=== PATIENT | male | born 1980 | race Caucasian/White ===

== ENCOUNTER → 2018-01-20 | Outpatient (CLI) | payer OTHER ==
--- NOTE | 2018-01-20 17:04 | DIAGNOSTIC IMAGING REPORT ---
RIGHT LOWER EXTREMITY VENOUS DOPPLER CLINICAL HISTORY: Right leg pain and swelling. COMPARISON STUDY: No previous studies for comparison. TECHNIQUE: Sonography of the deep venous system of the right lower extremity was performed. Compression and augmentation were evaluated. FINDINGS: The common femoral, superficial femoral and popliteal veins were compressible. Augmentation was normal. Flow was shown within the deep calf vessels. IMPRESSION: No evidence of deep venous thrombus within the right lower extremity. Electronically signed by: Michael Sharpe M.D. 01/20/2018 5:02 PM Dictated Date/Time: 01/20/2018 5:02 PM
== END | disposition home or self-care (01) ==
LOC: C.ULTR 16:34
DX: M79.604 Pain in right leg (principal); M79.89 Other specified soft tissue disorders

== ENCOUNTER → 2018-02-11 | Outpatient (CLI) | payer OTHER ==
[2018-02-11 09:36] LABS: BASO % 0.4 %; BASO ABS # 0.03 K/uL (0-0.2); EOS % 1.4 %; EOS ABS # 0.11 K/uL (0-0.5); HEMOGLOBIN 14.7 g/dL (14.0-18.0); IG# 0.02 K/uL (0.00-0.02); LYMPH % 23.5 %; LYMPH ABS # 1.87 K/uL (1.2-3.4); MEAN CELL VOLUME 86.4 fL (80-100); MEAN CORPUSCULAR HEMOGLOBIN 28.9 pg (25-34); MEAN CORPUSCULAR HGB CONC 33.4 g/dl (32-36); MEAN PLATELET VOLUME 9.6 fL (7.4-10.4); MONO ABS # 0.64 K/uL (0.11-0.59); NEUT % 66.4 %; PLATELET COUNT 205 K/uL (130-400); RED CELL DISTRIBUTION WIDTH CV 14.3 % (11.5-14.5); WHITE BLOOD COUNT 7.97 K/uL (4.8-10.8)
[2018-02-11 10:05] LABS: BLOOD UREA NITROGEN 15 mg/dl (7-18); CARBON DIOXIDE 26 mmol/L (21-32); CREATININE 1.13 mg/dl (0.60-1.40); GLUCOSE 104 mg/dl (70-99); SODIUM 141 mmol/L (136-145)
[2018-02-11 10:16] LABS: CHOLESTEROL 139 mg/dl (0-200); LDL CHOLESTEROL CALCULATED 85 mg/dl
[2018-02-11 10:58] LABS: HEMOGLOBIN A1C 5.6 % (4.5-5.6)
== END | disposition home or self-care (01) ==
LOC: C.LAB 08:05
DX: R73.9 Hyperglycemia, unspecified (principal); E78.5 Hyperlipidemia, unspecified; I10 Essential (primary) hypertension

== ENCOUNTER 2019-06-08 16:39 | Inpatient (IN) ==
--- OUTSIDE RECORDS SUMMARY | 2019-06-08 16:42 | External Medical Summary | Continuity of Care Document ---
:1980 Author Name Man Kearney, Provider Address Unavailable Unavailable , Care Team Providers Name Role Phone Nathanael Jama M.D., I. Unavailable [email or web address] Unavailable Unavailable Unavailable Unavailable Unavailable Assessments Assessment Narrative:35 yo male s/p vas, well healed.Assessed Problems:Vasectomy evaluation Problems Hypercholesterolemia (272.0) (E78.00) Anxiety (300.00) (F41.9) Vasectomy evaluation (V25.09) (Z30.09) Allergies and Adverse Reactions No Known Drug Allergies (Allergy) Medications Lexapro 20 MG Oral Tablet Refills: 0 Simvastatin 20 MG Oral Tablet Refills: 0 Procedures History of Tonsillectomy Status: Complet ed Immunizations Immunizations not documented Family History Grandparent Family history of diabetes mellitus (V18.0) (Z83.3) Status: Active Family history of cardiac disorder (V17.49) (Z82.49) Status: Active Social History - Smoking Status Never smoker Interventions Follow-ups/ReferralsFollow-up as needed; Done: 12 Sep 2015 Plan of Treatment Planned Observations Planned Goals not documented Results No Known Results Results not documented Encounters Appointment; Nathanael Jama M.D. 12-Sep-2015 9:00 Encounter Diagnosis: Problem not documented
[2019-06-08] MEDS ORDERED: CEFAZOLIN 3,000 MG in DEXTROSE 5% 50 ML IV ONE (17:14)
[2019-06-08] MEDS ORDERED: SODIUM CHLORIDE 0.9% 1000ML 2,000 ML IV SCH (17:15)
[2019-06-08] MEDS ORDERED: ONDANSETRON INJ 2 MG/ML 2 ML VIAL IV STA ×2 (17:16→20:42)
--- NOTE | 2019-06-08 17:17 | Emergency Department Note ---
Entered by Brandon Pennington acting as a scribe for Nasim Solis DO History of Present Illness General Chief complaint: Fever Stated complaint: FEVER, CHILLS, NAUSEA Time Seen by Provider: 06/08/19 16:53 Source: patient History of Present Illness Provider complaint: flu symptoms Onset (ago): day(s) 1 Location: abdomen Pain Consistency: + intermittent Maximum Pain Intensity: 5 Quality: + other (weakness) Relieved By: + rest Exacerbated By: + none Associated symptoms: + denies other symptoms, + cough, + fever/chills, + headaches, + nausea/vomiting and + other (sore throat, weakness) The patient is a 39 y/o male who presents to the emergency department for evaluation of intermittent fever/chills that began yesterday. That patient states he had chills yesterday and sleep a lot, felt a little better so he went to work but began having chills, nausea, sore throat, cough, headache, and all over weakness this afternoon. The patient states he took Tylenol prior to arrival. He reports he has leg cellulitis with edema that has been going down since starting a diet a few weeks ago, though he notes he recently got sunburn and is a little tender on his legs. The patient denies being in the srinivasan recently, neck stiffness or any other symptoms. The patient reports a history of hypertension, depression, high cholesterol, and cellulitis. Home Medications Home Medications Medication Instructions Recorded Confirmed Type atorvastatin 20 mg PO QAM 06/08/19 06/08/19 History escitalopram oxalate 20 mg PO QAM 06/08/19 06/08/19 History lisinopril 10 mg PO QAM 06/08/19 06/08/19 History Allergies Allergy/AdvReac Type Severity Reaction Status Date / Time No Known Allergies Allergy Unverified 06/08/19 17:13 Past Med/Surg History Medical History Cellulitis Depression High cholesterol Hypertension Social History Preferred Language: Hebrew Feels Safe at Home: Yes Smoking Status: Never smoker Review of Systems See HPI for pertinent positives & negatives. and A total of 10 systems reviewed and were otherwise negative Physical Exam Vital Signs Vital Signs - 24 hr 06/08/19 16:40 06/08/19 18:19 06/08/19 18:30 Temperature 37.8 C H Temperature Source Oral Sepsis Recent Fever Within 48 Hours Yes Sepsis New/Unexplained Change in Mental Status No Sepsis Action Taken by Nursing No Action Required Pulse Rate 137 H 109 H Pulse Rate [Apical] 113 H Pulse Rate from SpO2 Sensor 113 H Pulse Rhythm Regular Pulse Strength Normal Respiratory Rate 20 22 31 H Respiratory Effort / Characteristics Non-Labored Spontaneous Non-Labored Spontaneous Respiratory Depth Normal Normal Respiratory Pattern Regular Regular Blood Pressure 126/58 L 92/59 L Blood Pressure [Left Arm] 123/56 L Blood Pressure Mean 80 70 Blood Pressure Mean [Left Arm] 78 Blood Pressure Position Sitting Pulse Oximetry 96 93 95 Oxygen Delivery Method Room Air Room Air Room Air 06/08/19 19:01 Temperature Temperature Source Sepsis Recent Fever Within 48 Hours Sepsis New/Unexplained Change in Mental Status Sepsis Action Taken by Nursing Pulse Rate 115 H Pulse Rate [Apical] Pulse Rate from SpO2 Sensor 126 H Pulse Rhythm Pulse Strength Respiratory Rate 40 H Respiratory Effort / Characteristics Respiratory Depth Respiratory Pattern Blood Pressure 147/82 H Blood Pressure [Left Arm] Blood Pressure Mean 103 Blood Pressure Mean [Left Arm] Blood Pressure Position Pulse Oximetry 97 Oxygen Delivery Method Room Air CONSTITUTIONAL/VITAL SIGNS: Reviewed / noted above. GENERAL: Non-toxic in appearance. INTEGUMENTARY: Warm, dry, and [place]. HEAD: Normocephalic. EYES: without scleral icterus or trauma. ENT/OROPHARYNX: clear and moist. LYMPHADENOPATHY/NECK: Is supple without lymphadenopathy or meningismus. RESPIRATORY: Lungs clear and equal. CARDIOVASCULAR: Regular rate and rhythm. GI/ABDOMEN: Soft and nontender. No organomegaly or pulsatile mass. No rebound or guarding. Normal bowel sounds. EXTREMITIES: Warm and well perfused. Anterior lower extremities are erythematous and warm. Posterior and right leg is erythematous and warm. BACK: No CVA tenderness. NEUROLOGICAL: Intact without focal deficits. PSYCHIATRIC: normal affect. MUSCULOSKELETAL: Normally developed with good muscle tone. Course 1655: Past medical records reviewed. The patient was evaluated in room B07. A complete history and physical exam was performed. 1854: I checked on the patient and updated him on his results. 1899: I spoke with Dr. Keene Hospitalist. She will evaluate for further management. Administered Medications Sodium Chloride (Nss 1000ml) 2,000 mls @ 999 mls/hr IV .Q2H1M SUSANNAH Stop: 06/08/19 19:15 Last Admin: 06/08/19 18:11 Dose: 999 mls/hr Documented by: [id number] Discontinued Medications Cefazolin Sodium 3,000 mg/ (Dextrose) 72.5 mls @ 130 mls/hr IV ONE ONE Stop: 06/08/19 17:47 Last Infusion: 06/08/19 18:50 Dose: 0 mls/hr Documented by: [id number] Admin: 06/08/19 18:16 Dose: 130 mls/hr Documented by: [id number] Ondansetron HCl (Zofran) 4 mg IV NOW STA Stop: 06/08/19 17:17 Last Admin: 06/08/19 18:13 Dose: 4 mg Documented by: [id number] Medical Decision Making Differential Diagnosis Differential includes viral illness, influenza, streptococcal pharyngitis, men ingitis, pneumonia, sinusitis, UTI, pyelonephritis, otitis media. Medical Records Attestation: I reviewed the patient's medical records. Home Medications Current Medication List: was personally reviewed by me Laboratory Data Attestation: I reviewed the patient's lab results. Result diagrams: 06/08/19 17:40 06/08/19 17:40 Lab Results 06/08/19 06/08/19 Range/Units 17:40 17:40 WBC 18.33 H (4.8-10.8) K/uL RBC 4.94 (4.7-6.1) M/uL Hgb 14.3 (14.0-18.0) g/dL Hct 41.8 L (42-52) % MCV 84.6 (80-100) fL MCH 28.9 (25-34) pg MCHC 34.2 (32-36) g/dL RDW Std Deviation 41.8 (36.4-46.3) fL RDW Coeff of Ivy 13.7 (11.5-14.5) % Plt Count 193 (130-400) K/uL MPV 9.8 (7.4-10.4) fL Immature Gran % (Auto) 0.2 % Neut % (Auto) 93.2 % Lymph % (Auto) 3.3 % Barbour % (Auto) 3.2 % Eos % (Auto) 0.0 % Baso % (Auto) 0.1 % Immature Gran # (Auto) 0.04 H (0.00-0.02) K/uL Neut # (Auto) 17.08 H (1.4-6.5) K/uL Lymph # (Auto) 0.60 L (1.2-3.4) K/uL Barbour # (Auto) 0.59 (0.11-0.59) K/uL Eos # (Auto) 0.00 (0-0.5) K/uL Baso # (Auto) 0.02 (0-0.2) K/uL Sodium 136 (136-145) mmol/L Potassium 3.7 (3.5-5.1) mmol/L Chloride 106 (98-107) mmol/L Carbon Dioxide 24 (21-32) mmol/L Anion Gap 6.0 (3-11) BUN 16 (7-18) mg/dl Creatinine 1.17 (0.6-1.4) mg/dl Est Cr Clr Drug Dosing 137.9 ml/min Est GFR ( Amer) 90.5 Est GFR (Non-Af Amer) 78.1 BUN/Creatinine Ratio 13.5 (10-20) Glucose 106 H (70-99) mg/dl Calcium 8.9 (8.5-10.1) mg/dl Total Bilirubin 0.5 (0.2-1) mg/dl AST 12 L (15-37) U/L ALT 41 (12-78) U/L Alkaline Phosphatase 91 (45-117) U/L Total Protein 7.8 (6.4-8.2) gm/dl Albumin 4.0 (3.4-5.0) gm/dl Globulin 3.8 (2.5-4.0) gm/dl Albumin/Globulin Ratio 1.1 (0.9-2) Imaging Data Radiologist's Impression: Radiology results as stated below per my review and the radiologist's interpretation: XR chest 1V portable CLINICAL HISTORY: 39 years-old Male presenting with fever, mild cough. TECHNIQUE: Portable upright AP view of the chest was obtained. COMPARISON: None. FINDINGS: Evaluation degraded by portable technique and body habitus. Cardiac silhouette top normal in size. Mild pulmonary vascular prominence. Mildly low lung volumes. No focal opacity. No large effusion or pneumothorax. Osseous structures normal. Upper abdomen normal. IMPRESSION: Evaluation degraded by portable technique and body habitus. 1. Mild volume overload suggested. No other convincing evidence of acute cardiopulmonary disease. Electronically signed by: Anthony Dove M.D. 06/08/2019 5:45 PM Blood Pressure Blood Pressure Findings: Elevated blood pressure Blood Pressure Disposition: further management by hospitalist KIAH Narrative This is a 39-year-old male who presents to the ED with a chief complaint of fever and chills that started last night and today. He states that he took some Tylenol at 4 PM today. He has some associated nausea and dizziness and feels like he might be dehydrated. The patient feels weak and drained. He states that he has a slight sore throat and a slight cough. He also has some redness in his legs. He states that it could be a sunburn or cellulitis. He reports that history of cellulitis in his legs. He states that he may have gotten a sunburn on Thursday. The patient also states he may have a slight cough this afternoon. He has a slight headache. Denies any light sensitivity or neck stiffness or pain. He has no known tick exposures. He does not go into the srinivasan. His vital signs here reveal a tachycardia with a heart rate of 137 on triage. When I saw the patient it was 128. His temperature is 37.8. Vital signs are otherwise stable. The patient's white blood cell count was 18.3. Complete metabolic panel was unremarkable. Chest x-ray did not show acute infection. They did report mild volume overload. This could be related to body habitus. Clinically the patient does not have any pulmonary findings to suggest heart failure. He does report a history of hypertension and high cholesterol. The patient was given IV Ancef as well as IV Zofran and 2 L of normal saline. The patient's tachycardia improved to the 1 teens. His blood pressure transiently dropped to 92 systolic. Because of the patient's fever, cellulitis, tachycardia and leukocytosis, the patient will be seen by the hospitalist for sepsis related to cellulitis. Impression & Plan Cellulitis, Sepsis : Cellulitis Qualifiers: Site of cellulitis: extremity Site of cellulitis of extremity: lower extremity Laterality: right Qualified Code(s): L03.115 - Cellulitis of right lower limb Sepsis Qualifiers: Sepsis type: sepsis due to unspecified organism Qualified Code(s): A41.9 - Sepsis, unspecified organism The scribe's documentation has been prepared under my direction and personally reviewed by me in its entirety. I confirm that the note above accurately reflects all work, treatment, procedures, and medical decision making performed by me.
--- NOTE | 2019-06-08 17:47 | XRay Report ---
XR chest 1V portable CLINICAL HISTORY: 39 years-old Male presenting with fever, mild cough. TECHNIQUE: Portable upright AP view of the chest was obtained. COMPARISON: None. FINDINGS: Evaluation degraded by portable technique and body habitus. Cardiac silhouette top normal in size. Mild pulmonary vascular prominence. Mildly low lung volumes. N o focal opacity. No large effusion or pneumothorax. Osseous structures normal. Upper abdomen normal. IMPRESSION: Evaluation degraded by portable technique and body habitus. 1. Mild volume overload suggested. No other convincing evidence of acute cardiopulmonary disease. Electronically signed by: Anthony Dove M.D. 06/08/2019 5:45 PM
[2019-06-08 18:01] LABS: Basophils # (auto) 0.02 K/uL (0-0.2); Basophils % (auto) 0.1 %; Hematocrit (blood only) 41.8 % (42-52); Hemoglobin 14.3 g/dL (14.0-18.0); Immature Granulocytes # (auto) 0.04 K/uL (0.00-0.02); Immature Granulocytes % (auto) 0.2 %; Lymphocytes % (auto) 3.3 %; Mean Corpuscular Hgb Conc 34.2 g/dL (32-36); Mean Corpuscular Volume 84.6 fL (80-100); Mean Platelet Volume 9.8 fL (7.4-10.4); Monocytes # (auto) 0.59 K/uL (0.11-0.59); Monocytes % (auto) 3.2 %; Neutrophils # (auto) 17.08 K/uL (1.4-6.5); Neutrophils % (auto) 93.2 %; Platelet Count 193 K/uL (130-400); RDW Coefficient of Variation 13.7 % (11.5-14.5); RDW Standard Deviation 41.8 fL (36.4-46.3); Red Blood Count 4.94 M/uL (4.7-6.1); White Blood Count 18.33 K/uL (4.8-10.8)
[2019-06-08 18:19] LABS: BUN Creatinine Ratio 13.5 (10-20); Calcium 8.9 mg/dl (8.5-10.1); Creatinine Clr Calc Pharmacy 137.9 ml/min; Est GFR (African American) 90.5; Est GFR (Non-African American) 78.1; Potassium 3.7 mmol/L (3.5-5.1)
[2019-06-08 18:21] LABS: Albumin Globulin Ratio 1.1 (0.9-2); Bilirubin,Total 0.5 mg/dl (0.2-1); Globulin 3.8 gm/dl (2.5-4.0); Total Protein 7.8 gm/dl (6.4-8.2)
--- NOTE | 2019-06-08 20:03 | History & Physical Report ---
Date of Service June 08, 2019 Assessment & Plan (1) Cellulitis: Chief Complaint: 39 y/o M Hx HTN, HLD, depression, morbid obesity. Presents with a fever and RLE pain and erythema. 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 The pt was febrile and borderline hypotensive on arri pb to the ER. He responded well to IVF and acetaminophen and was actually hypertensive on admission. Labs are notable for leukocytosis. 1) Cellulitis with sepsis - placed on Ceftriaxone and Vanc pending culture results. Affected area delineated. 2) HTN - cont Lisinopril 3) Depression - cont Lexapro Full code - heparin prophylaxis - total time for this admit including review of labs, meds, imaging, records - discussion with pt and ER attending - 35 min Present on Admission?: Yes (2) Sepsis: Present on Admission?: Yes History of Present Illness Chief Complaint: Fever - RLE pain/erythema Primary Care Provider: Etienne Turk Jr, DO 39 y/o M Hx HTN, HLD, depression, morbid obesity. Presents with a fever and RLE pain and erythema. 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 The pt was febrile and borderline hypotensive on arrival to the ER. He responded well to IVF and acetaminophen and was actually hypertensive on admission. Labs are notable for leukocytosis. PMH: 1) Morbid obesity BMI 56 2) HTN 3) HLD 4) Depression Denies a surgical history Social: Does not smoke. Occasional beer. 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 Family: Denies a significant family history. Allergies Allergy/AdvReac Type Severity Reaction Status Date / Time No Known Allergies Allergy Unverified 06/08/19 17:13 Home Medications Home Medications Medication Instructions Recorded Confirmed Type atorvastatin 20 mg PO QAM 06/08/19 06/08/19 History escitalopram oxalate 20 mg PO QAM 06/08/19 06/08/19 History lisinopril 10 mg PO QAM 06/08/19 06/08/19 History Past Med/Surg History Medical History Cellulitis Depression High cholesterol Hypertension Social History Preferred Language: Com[place]an Feels Safe at Home: Yes Smoking Status: Never smoker Review of Systems Review of Systems: Gen: +Fevers, night sweats, rigors, fatigue, malaise, weight loss/gain ENT: Denies congestion, throat pain, hearing loss Eyes: Denies acute visual changes CV: Denies CP, palpitations Pulmonary: Denies SOB, cough, wheezing GI: Denies N/V, diarrhea, constipation Neuro: Denies acute or unilateral weakness, acute gait impairment, headache or acute visual changes Musculoskeletal: Denies joint pain, inflammation Endocrine: Denies polydipsia, polyuria Skin: Erythema over LEs - pain of RLE Physical Exam Physical Exam: General: AAO x 3, no distress ENT: No erythema or exudates, no thrush Eyes: ANGELINE, EOMI Head and neck: Normocephalic, atraumatic, No JVD, neck is supple. Chest/heart: Nontender, S1,2, RRR, no murmurs, no gallops Lungs: CTAB, no wheezing or crackles Abdomen: Nontender, nondistended, BS+ Neuro: AAO x 3, speech is clear, no unilateral weakness or loss of sensation, coordination intact Musculoskeletal: No joint inflammation, muscle tenderness, FROM Skin: There is a very warm and tender patch of skin on the RLE - extends from above the ankle to below the knee. There is a smaller affected area on the L side. There may be an element of sunburn imposed on the cellulitis. Extremities: No clubbing, cyanosis, edema - cellulitis as above Results & Data Vital Signs (Past 12 Hours) Vital Signs Temp Pulse Pulse Resp BP BP Pulse Ox 06/08/19 19:30 115 H 25 H 158/82 H 96 06/08/19 19:01 115 H 40 H 147/82 H 97 06/08/19 18:30 109 H 31 H 92/59 L 95 06/08/19 18:19 113 H 22 123/56 L 93 06/08/19 16:40 100.0 F H 137 H 20 126/58 L 96 PG Care Time/CCT Total # of Minutes Spent Total Time Spent with Patient: Total time spent is greater than 50% in coordination of care (as documented) at patient's floor/unit and/or counseling patient: (1) Cellulitis Laterality: right Site of cellulitis: extremity Site of cellulitis of extremity: lower extremity Qualified Code(s): L03.115 - Cellulitis of right lower limb (2) Sepsis Sepsis type: sepsis due to unspecified organism Qualified Code(s): A41.9 - Sepsis, unspecified organism
[2019-06-08] MEDS ORDERED: ACETAMINOPHEN 500 MG TAB PO STA (20:42)
[2019-06-08] MEDS ORDERED: POLYETHYLENE (MIRALAX) 17 GM PACK PO PRN (21:10)
[2019-06-08] MEDS ORDERED: ZOLPIDEM TARTRATE 5 MG TAB PO PRN (21:10)
[2019-06-08] MEDS ORDERED: ALUMINUM/MAGNESIUM SUSP 30 ML UDC PO PRN (21:10)
[2019-06-08] MEDS ORDERED: VANCOMYCIN CONSULT ACTIVE PRN (21:10)
[2019-06-08] MEDS ORDERED: MAGNESIUM HYDROXIDE SUSP 30 ML UDC PO PRN (21:10)
[2019-06-08] MEDS ORDERED: VANCOMYCIN HCL 2,750 MG in SODIUM CHLORIDE 0.9% 500 ML IV STA (21:17)
[2019-06-08 21:41] LABS: Appearance Urine Clear (Clear); Bilirubin Urine Negative (Negative); Blood Urine Negative (Negative); Color Urine Yellow; Glucose Urine UA Negative (Negative); Ketones Urine Trace (Negative); Leukocyte Esterase Urine Negative (Negative); Nitrite Urine Negative (Negative); Protein Urine Negative (Negative); Specific Gravity Urine 1.031 (1.000-1.030); Urobilinogen Urine Negative (Negative)
[2019-06-08] MEDS: LACTATED RINGER'S 1,000 ML IV SCH (21:44)
--- NOTE | 2019-06-08 22:08 | Pharmacy Report ---
Pharmacy Abx Dose Short Note - Date of Service June 08, 2019 - Assessment & Plan Assessment * Mr Walsh is a 39 year old M receiving Vancomycin/Ceftriaxone for treatment of RLE cellulitis/sepsis. * Patient reports fever/chills/cough. CXR does not indicate infectious process. * Blood cultures pending. Plan Vancomycin * Vanc 2750mg (~15mg/kg) IV x1 dose, then 2000mg (~11mg/kg) IV q10h * non-standard loading dose d/t pt's weight * Estimated p'kinetic parameters (based on CrCl >120mL/min): * Vd ~ 0.5L/kg, Cristino ~ 0.104/hr, t1/2 6.7hr * Patient dosed very conservatively in anticipation of vanc accumulation in morbidly obese patient (BMI >55kg/m2). * Goal trough level for SSTI: 15 to 20 mcg/mL * Trough level ordered for: 06/10 prior to the 5th overall dose. This may not yet represent steady-state, but will need to monitor for signs of vancomycin accumulation and reduce dosing if necessary. Pharmacy will continue to follow and will adjust dose/frequency as necessary. Thank you.
[2019-06-08] MEDS ORDERED: ACETAMINOPHEN 325 MG TAB PO STA (22:47)
[2019-06-09] MEDS ORDERED: KETOROLAC TROMETHAMINE 15 MG/ML VIAL IV ONE ×2 (00:01→05:38)
[2019-06-09] MEDS ORDERED: cefTRIAXone SODIUM 2,000 MG in DEXTROSE 5% 50 ML IV SCH (04:00)
[2019-06-09] MEDS: LACTATED RINGER'S 1,000 ML IV SCH (04:34)
[2019-06-09] MEDS: VANCOMYCIN HCL 2,000 MG in SODIUM CHLORIDE 0.9% 500 ML IV SCH ×2 (05:55→16:16)
[2019-06-09] MEDS: ACETAMINOPHEN 325 MG TAB PO PRN ×2 (06:19→13:01)
[2019-06-09 07:52] LABS: Hematocrit (blood only) 37.2 % (42-52); Hemoglobin 12.2 g/dL (14.0-18.0); Mean Corpuscular Hgb Conc 32.8 g/dL (32-36); Mean Corpuscular Volume 86.5 fL (80-100); Mean Platelet Volume 10.2 fL (7.4-10.4); Platelet Count 174 K/uL (130-400); RDW Coefficient of Variation 14.2 % (11.5-14.5); RDW Standard Deviation 44.5 fL (36.4-46.3); White Blood Count 15.31 K/uL (4.8-10.8)
[2019-06-09] MEDS: ATORVASTATIN 20 MG TAB PO SCH (07:59)
[2019-06-09 08:02] LABS: INR 1.2 (0.9-1.1); Prothrombin Time 12.4 Seconds (9.0-12.0)
[2019-06-09 08:18] LABS: Basophils # (auto) 0.02 K/uL (0-0.2); Basophils % (auto) 0.1 %; Immature Granulocytes # (auto) 0.04 K/uL (0.00-0.02); Immature Granulocytes % (auto) 0.3 %; Lymphocytes # (auto) 1.19 K/uL (1.2-3.4); Lymphocytes % (auto) 7.8 %; Monocytes # (auto) 0.62 K/uL (0.11-0.59); Neutrophils # (auto) 13.44 K/uL (1.4-6.5); Neutrophils % (auto) 87.8 %
[2019-06-09 08:57] LABS: BUN Creatinine Ratio 11.6 (10-20); Calcium 7.7 mg/dl (8.5-10.1); Creatinine Clr Calc Pharmacy 124.1 ml/min; Est GFR (African American) 80.4; Est GFR (Non-African American) 69.4; Magnesium 1.9 mg/dl (1.8-2.4); Potassium 3.4 mmol/L (3.5-5.1)
[2019-06-09] MEDS ORDERED: LISINOPRIL 10 MG TAB PO SCH (09:00)
[2019-06-09] MEDS: HEPARIN SOD 5,000 UNIT/0.5 ML VIAL SQ SCH ×2 (13:00→21:54)
[2019-06-09] MEDS ORDERED: POTASSIUM CHLORIDE 20 MEQ TABCR PO STA (15:30)
[2019-06-09] MEDS ORDERED: PIPERACILL/TAZOBAC CONSULT ACTIVE PRN (19:36)
--- NOTE | 2019-06-09 19:38 | Hospitalist Progress Note ---
Date of Service June 09, 2019 Assessment & Plan (1) Cellulitis: Pt is a 39 y/o M Hx HTN, HLD, depression, morbid obesity. Presents with a fever and RLE >LLE pain and erythema. 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 The pt was febrile and borderline hypotensive on arrival to the ER, with tachycardia. He responded well to IVF and acetaminophen and was actually hypertensive on admission. Labs are notable for leukocytosis. Cellulitis with sepsis - initially placed on Ceftriaxone and Vanc pending culture results. Affected area delineated. 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 Is not a diabetic -will broaden coverage to Zosyn and dc Rocephin -continue Vancomycin -continue tylenol as needed for fevers -can dc IVFs -follow BCs-NGTD (2) Sepsis: as above with leukocytosis, tachycardia, fever, cellulitis -treating with abx (3) HTN (hypertension), benign: stable -continue lisinopril (4) Hyperlipidemia: -continue statin (5) Obesity: BMI 55. Pt is actively working on losing weight and has lost 10 lbs in the last few weeks (6) Depression: stable -continue Lexapro (7) DVT prophylaxis: SQ Heparin Dispo-continued stay for cellulitis Subjective Feeling much better today. No fevers today, no more chills. Feels his leg is less painful, a little less red, however he now has red streaking up his right thigh that he did not notice yesterday Had some mild nausea earlier that resolved on its own. Denies CP or SOB, no HINDS, no diarrhea, no abd pain, is making urine, danielle po Review of Systems Review of Systems: All systems reviewed & are unremarkable except as noted in HPI & below Physical Exam Constitutional: WD/WN, vitals as above + morbidly obese Eyes: PERRL, conjunctivae normal, anicteric sclerae ENMT: external ear and nose normal, oropharynx normal Neck: trachea midline, no thyromegaly Respiratory: normal respiratory effort, lungs clear to auscultation Cardiovascular: Rate/Rhythm: regular rhythm and + tachycardic Heart Sounds: no murmur Extremities: + edema (1+ pitting edema of bilat LEs to the mid tibia) Gastrointestinal (Abdomen): normal bowel sounds, soft, nontender, no hepatosplenomegaly Musculoskeletal: Extremities: no cyanosis and no clubbing Skin: + rash (right anterior and posterior leg with erythema from ankle to knee) and + erythema (with streaking of erythema on right anteromedial thigh) left anterior leg very mild erythema Right leg erythema now spread above marker line Neurologic: moves all extremities and awake; no focal motor deficits Psychiatric: A+Ox3, euthymic affect Results & Data Vital Signs (Past 12 Hours) Vital Signs Temp Pulse Resp BP Pulse Ox 06/09/19 15:21 37.2 C 102 H 21 120/65 94 06/09/19 13:00 37.2 C Laboratory Results 06/09/19 06/09/19 06/09/19 Range/Units 07:32 07:31 07:31 WBC (4.8-10.8) K/uL RBC (4.7-6.1) M/uL Hgb (14.0-18.0) g/dL Hct (42-52) % MCV (80-100) fL MCH (25-34) pg MCHC (32-36) g/dL RDW Std Deviation (36.4-46.3) fL RDW Coeff of Ivy (11.5-14.5) % Plt Count (130-400) K/uL MPV (7.4-10.4) fL Immature Gran % (Auto) % Neut % (Auto) % Lymph % (Auto) % Gilliam % (Auto) % Eos % (Auto) % Baso % (Auto) % Immature Gran # (Auto) (0.00-0.02) K/uL Neut # (Auto) (1.4-6.5) K/uL Lymph # (Auto) (1.2-3.4) K/uL Gilliam # (Auto) (0.11-0.59) K/uL Eos # (Auto) (0-0.5) K/uL Baso # (Auto) (0-0.2) K/uL PT 12.4 H (9.0-12.0) Seconds INR 1.2 H (0.9-1.1) Sodium 137 (136-145) mmol/L Potassium 3.4 L (3.5-5.1) mmol/L Chloride 108 H (98-107) mmol/L Carbon Dioxide 23 (21-32) mmol/L Anion Gap 6.0 (3-11) BUN 15 (7-18) mg/dl Creatinine 1.29 (0.6-1.4) mg/dl Est Cr Clr Drug Dosing 124.1 ml/min Est GFR ( Amer) 80.4 Est GFR (Non-Af Amer) 69.4 BUN/Creatinine Ratio 11.6 (10-20) Glucose 111 H (70-99) mg/dl POC Glucose 108 H (70-99) Calcium 7.7 L (8.5-10.1) mg/dl Magnesium 1.9 (1.8-2.4) mg/dl 06/09/19 Range/Units 07:31 WBC 15.31 H (4.8-10.8) K/uL RBC 4.30 L (4.7-6.1) M/uL Hgb 12.2 L (14.0-18.0) g/dL Hct 37.2 L (42-52) % MCV 86.5 (80-100) fL MCH 28.4 (25-34) pg MCHC 32.8 (32-36) g/dL RDW Std Deviation 44.5 (36.4-46.3) fL RDW Coeff of Ivy 14.2 (11.5-14.5) % Plt Count 174 (130-400) K/uL MPV 10.2 (7.4-10.4) fL Immature Gran % (Auto) 0.3 % Neut % (Auto) 87.8 % Lymph % (Auto) 7.8 % Gilliam % (Auto) 4.0 % Eos % (Auto) 0.0 % Baso % (Auto) 0.1 % Immature Gran # (Auto) 0.04 H (0.00-0.02) K/uL Neut # (Auto) 13.44 H (1.4-6.5) K/uL Lymph # (Auto) 1.19 L (1.2-3.4) K/uL Gilliam # (Auto) 0.62 H (0.11-0.59) K/uL Eos # (Auto) 0.00 (0-0.5) K/uL Baso # (Auto) 0.02 (0-0.2) K/uL PT (9.0-12.0) Seconds INR (0.9-1.1) Sodium (136-145) mmol/L Potassium (3.5-5.1) mmol/L Chloride (98-107) mmol/L Carbon Dioxide (21-32) mmol/L Anion Gap (3-11) BUN (7-18) mg/dl Creatinine (0.6-1.4) mg/dl Est Cr Clr Drug Dosing ml/min Est GFR ( Amer) Est GFR (Non-Af Amer) BUN/Creatinine Ratio (10-20) Glucose (70-99) mg/dl POC Glucose (70-99) Calcium (8.5-10.1) mg/dl Magnesium (1.8-2.4) mg/dl PG Care Time/CCT Total # of Minutes Spent Total Time Spent with Patient: Total time spent is greater than 50% in coordination of care (as documented) at patient's floor/unit and/or counseling patient: (1) Cellulitis Laterality: right Site of cellulitis: extremity Site of cellulitis of e xtremity: lower extremity Qualified Code(s): L03.115 - Cellulitis of right lower limb (2) Sepsis Sepsis type: sepsis due to unspecified organism Qualified Code(s): A41.9 - Sepsis, unspecified organism
[2019-06-09] MEDS ORDERED: PIPERACILLIN/TAZOBACTAM 3.375 GM in DEXTROSE 5% 100 ML IV SCH (19:45)
[2019-06-09] MEDS ORDERED: PIPERACILLIN/TAZOBACTAM 4.5 GM in DEXTROSE 5% 100 ML IV ONE (20:15)
[2019-06-09] MEDS ORDERED: ONDANSETRON INJ 2 MG/ML 2 ML VIAL IV PRN (21:54)
[2019-06-10] MEDS ORDERED: ONDANSETRON INJ 2 MG/ML 2 ML VIAL IV PRN (00:57)
[2019-06-10] MEDS: VANCOMYCIN HCL 2,000 MG in SODIUM CHLORIDE 0.9% 500 ML IV SCH ×3 (02:47→21:31)
[2019-06-10] MEDS: PIPERACILLIN/TAZOBACTAM 4.5 GM in DEXTROSE 5% 100 ML IV SCH ×3 (02:47→17:55)
[2019-06-10] MEDS: HEPARIN SOD 5,000 UNIT/0.5 ML VIAL SQ SCH ×3 (05:56→21:31)
[2019-06-10 06:11] LABS: Basophils # (auto) 0.01 K/uL (0-0.2); Basophils % (auto) 0.1 %; Eosinophils # (auto) 0.01 K/uL (0-0.5); Eosinophils % (auto) 0.1 %; Hematocrit (blood only) 37.3 % (42-52); Hemoglobin 12.1 g/dL (14.0-18.0); Immature Granulocytes # (auto) 0.05 K/uL (0.00-0.02); Immature Granulocytes % (auto) 0.4 %; Lymphocytes # (auto) 1.59 K/uL (1.2-3.4); Lymphocytes % (auto) 12.2 %; Mean Corpuscular Hgb Conc 32.4 g/dL (32-36); Mean Corpuscular Volume 88.6 fL (80-100); Mean Platelet Volume 9.9 fL (7.4-10.4); Monocytes # (auto) 0.74 K/uL (0.11-0.59); Monocytes % (auto) 5.7 %; Neutrophils # (auto) 10.63 K/uL (1.4-6.5); Neutrophils % (auto) 81.5 %; Platelet Count 176 K/uL (130-400); RDW Coefficient of Variation 14.2 % (11.5-14.5); RDW Standard Deviation 45.9 fL (36.4-46.3); Red Blood Count 4.21 M/uL (4.7-6.1); White Blood Count 13.03 K/uL (4.8-10.8)
[2019-06-10 06:47] LABS: Creatinine Clr Calc Pharmacy 132.3 ml/min; Est GFR (African American) 86.9; Potassium 3.8 mmol/L (3.5-5.1)
[2019-06-10] MEDS: ESCITALOPRAM OXALATE 20 MG TAB PO SCH (08:14)
[2019-06-10] MEDS: ATORVASTATIN 20 MG TAB PO SCH (08:49)
[2019-06-10] MEDS ORDERED: VANCOMYCIN TROUGH ONE (11:30)
--- NOTE | 2019-06-10 13:26 | Pharmacy Report ---
Pharmacy Abx Dose Progress Nt - Date of Service June 10, 2019 - Pharmacy Dosing Scope The patient is currently receiving the following antimicrobial agents per Pharmacy consult: Vancomycin 2,000 mg IV every 10 hours + Zosyn 4.5g IV Q8hrs - Objective Vital Signs (Past 12hrs): Vital Signs Temp Pulse Resp BP Pulse Ox 06/10/19 07:34 36.9 C 93 H 20 126/76 97 Lab Results (24hrs): Laboratory Tests (24 Hours) 06/10/19 06/10/19 06/10/19 11:38 05:35 05:35 WBC 13.03 H Neut # (Auto) 10.63 H Creatinine 1.21 Est Cr Clr Drug Dosing 132.3 Vancomycin Trough 12.0 Micro Results: Microbiology 06/08/19 17:51 Blood Aerobic Blood Culture - Preliminary 06/08/19 17:51 Blood Anaerobic Blood Culture - Preliminary No growth in Aerobic bottle after 24 hours. No growth in Anaerobic bottle after 24 hours. 06/08/19 17:40 Blood Aerobic Blood Culture - Preliminary 06/08/19 17:40 Blood Anaerobic Blood Culture - Preliminary No growth in Aerobic bottle after 24 hours. No growth in Anaerobic bottle after 24 hours. 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 Additionally, will need to dose somewhat conservatively since pt is receiving combination of vanco + zosyn which has an increased risk of nephrotoxicity than either agent when used in monotherapy * Continue dose of 2,000 mg IV every 10 hours * Goal trough level for cellulitis : 10 to 20 mcg/mL depending on c/s &/or severity * Repeat trough level ordered for: 06/12/19 @ 0400 * Less than traditional dose and/or extended dosing interval selected due to likelihood of drug accumulation in obese patient Piperacillin/tazobactam * Continue 4.5 g IV extended infusion every 8 hours for CrCl greater than 20 mL/min * Increased dose used for obesity (BMI >35) Pharmacy will continue to follow and will adjust dose/frequency as necessary. Thank you.
[2019-06-10] MEDS: ACETAMINOPHEN 325 MG TAB PO PRN (16:00)
[2019-06-10] MEDS: CLINDAMYCIN 600 MG in DEXTROSE 5% 50 ML IV SCH (16:00)
--- NOTE | 2019-06-10 16:18 | Hospitalist Progress Note ---
Date of Service June 10, 2019 Assessment & Plan (1) Cellulitis: Pt is a 39 y/o M Hx HTN, HLD, depression, morbid obesity. Presents with a fever and RLE >LLE pain and erythema. 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 The pt was febrile and borderline hypotensive on arrival to the ER, with tachycardia. He responded well to IVF and acetaminophen and was actually hypertensive on admission. Labs are notable for leukocytosis. Cellulitis with sepsis - initially placed on Ceftriaxone and Vanc pending culture results. Affected area delineated. 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 Is not a diabetic -have since broadened coverage to Zosyn on 06/09 -continue Vancomycin -add on clinda for antitoxin effect x 48 hrs -continue tylenol as needed for fevers -follow BCs-NGTD -repeat BCxs now for continued fevers although likely from toxin effect (2) Sepsis: as above with leukocytosis, tachycardia, fever, cellulitis -treating with abx (3) HTN (hypertension), benign: stable -continue lisinopril (4) Hyperlipidemia: -continue statin (5) Obesity: BMI 55. Pt is actively working on losing weight and has lost 10 lbs in the last few weeks (6) Depression: stable -continue Lexapro (7) Dyspepsia: could be secondary to acute illness, stress Sounds like GERD -add Pepcid bid (8) DVT prophylaxis: SQ Heparin Dispo-continued stay for cellulitis Subjective Feeling better overall, was not aware he was still having a feve as he feels better. Painand redness in leg he notes to be improved No HINDS,lightheadedness, CP, SOB Having upset stomach, some nausea, indigestion, improved with Maalox Review of Systems Review of Systems: All systems reviewed & are unremarkable except as noted in HPI & below Physical Exam Constitutional: WD/WN, vitals as above + morbidly obese Eyes: PERRL, conjunctivae normal, anicteric sclerae ENMT: external ear and nose normal, oropharynx normal Neck: trachea midline, no thyromegaly Respiratory: normal respiratory effort, lungs clear to auscultation Cardiovascular: Rate/Rhythm: regular rate and regular rhythm Heart Sounds: no murmur Extremities: + edema (1+ pitting edema of bilat LEs to the mid tibia) Gastrointestinal (Abdomen): normal bowel sounds, soft, nontender, no hepatosplenomegaly Musculoskeletal: Extremities: no cyanosis and no clubbing Skin: + rash (right ant/post leg w/ erythema from ankle to knee slightly improved) and + erythema (with streaking of erythema on right anteromedial thigh slightly decreased) Neurologic: moves all extremities and awake; no focal motor deficits Psychiatric: A+Ox3, euthymic affect Results & Data Vital Signs (Past 12 Hours) Vital Signs Temp Pulse Resp BP Pulse Ox 06/10/19 15:12 38.0 C H 96 H 18 135/79 93 06/10/19 07:34 36.9 C 93 H 20 126/76 97 Laboratory Results 06/11/19 06/11/19 06/11/19 Range/Units 05:23 05:23 05:23 WBC 8.21 (4.8-10.8) K/uL RBC 4.22 L (4.7-6.1) M/uL Hgb 12.1 L (14.0-18.0) g/dL Hct 36.7 L (42-52) % MCV 87.0 (80-100) fL MCH 28.7 (25-34) pg MCHC 33.0 (32-36) g/dL RDW Std Deviation 44.6 (36.4-46.3) fL RDW Coeff of Ivy 14.1 (11.5-14.5) % Plt Count 192 (130-400) K/uL MPV 10.0 (7.4-10.4) fL Immature Gran % (Auto) 0.1 % Neut % (Auto) 69.2 % Lymph % (Auto) 21.7 % Piute % (Auto) 7.6 % Eos % (Auto) 0.9 % Baso % (Auto) 0.5 % Immature Gran # (Auto) 0.01 (0.00-0.02) K/uL Neut # (Auto) 5.69 (1.4-6.5) K/uL Lymph # (Auto) 1.78 (1.2-3.4) K/uL Piute # (Auto) 0.62 H (0.11-0.59) K/uL Eos # (Auto) 0.07 (0-0.5) K/uL Baso # (Auto) 0.04 (0-0.2) K/uL ESR 75 H (0-14) mm/hr Sodium 138 (136-145) mmol/L Potassium 3.9 (3.5-5.1) mmol/L Chloride 107 (98-107) mmol/L Carbon Dioxide 25 (21-32) mmol/L Anion Gap 6.0 (3-11) BUN 11 (7-18) mg/dl Creatinine 1.07 (0.6-1.4) mg/dl Est Cr Clr Drug Dosing 149.6 ml/min Est GFR ( Amer) 100.8 Est GFR (Non-Af Amer) 87.0 BUN/Creatinine Ratio 10.3 (10-20) Glucose 95 (70-99) mg/dl Calcium 8.2 L (8.5-10.1) mg/dl C-Reactive Protein 13.40 H (0-0.29) mg/dl Vancomycin Trough (See Comment) mcg/ml 06/10/19 Range/Units 11:38 WBC (4.8-10.8) K/uL RBC (4.7-6.1) M/uL Hgb (14.0-18.0) g/dL Hct (42-52) % MCV (80-100) fL MCH (25-34) pg MCHC (32-36) g/dL RDW Std Deviation (36.4-46.3) fL RDW Coeff of Ivy (11.5-14.5) % Plt Count (130-400) K/uL MPV (7.4-10.4) fL Immature Gran % (Auto) % Neut % (Auto) % Lymph % (Auto) % Piute % (Auto) % Eos % (Auto) % Baso % (Auto) % Immature Gran # (Auto) (0.00-0.02) K/uL Neut # (Auto) (1.4-6.5) K/uL Lymph # (Auto) (1.2-3.4) K/uL Piute # (Auto) (0.11-0.59) K/uL Eos # (Auto) (0-0.5) K/uL Baso # (Auto) (0-0.2) K/uL ESR (0-14) mm/hr Sodium (136-145) mmol/L Potassium (3.5-5.1) mmol/L Chloride (98-107) mmol/L Carbon Dioxide (21-32) mmol/L Anion Gap (3-11) BUN (7-18) mg/dl Creatinine (0.6-1.4) mg/dl Est Cr Clr Drug Dosing ml/min Est GFR ( Amer) Est GFR (Non-Af Amer) BUN/Creatinine Ratio (10-20) Glucose (70-99) mg/dl Calcium (8.5-10.1) mg/dl C-Reactive Protein (0-0.29) mg/dl Vancomycin Trough 12.0 (See Comment) mcg/ml PG Care Time/CCT Total # of Minutes Spent Total Time Spent with Patient: Total time spent is greater than 50% in coordination of care (as documented) at patient's floor/unit and/or counseling patient: (1) Cellulitis Laterality: right Site of cellulitis: extremity Site of cellulitis of extremity: lower extremity Qualified Code(s): L03.115 - Cellulitis of right lower limb (2) Sepsis Sepsis type: sepsis due to unspecified organism Qualified Code(s): A41.9 - Sepsis, unspecified organism
[2019-06-10] MEDS: FAMOTIDINE 20 MG in SYRINGE 3 ML IV SCH ×2 (18:29→21:31)
[2019-06-11] MEDS: CLINDAMYCIN 600 MG in DEXTROSE 5% 50 ML IV SCH ×4 (00:34→23:45)
[2019-06-11] MEDS: PIPERACILLIN/TAZOBACTAM 4.5 GM in DEXTROSE 5% 100 ML IV SCH ×3 (02:03→18:48)
[2019-06-11 06:08] LABS: Basophils # (auto) 0.04 K/uL (0-0.2); Basophils % (auto) 0.5 %; Eosinophils # (auto) 0.07 K/uL (0-0.5); Eosinophils % (auto) 0.9 %; Hematocrit (blood only) 36.7 % (42-52); Hemoglobin 12.1 g/dL (14.0-18.0); Immature Granulocytes # (auto) 0.01 K/uL (0.00-0.02); Immature Granulocytes % (auto) 0.1 %; Lymphocytes # (auto) 1.78 K/uL (1.2-3.4); Lymphocytes % (auto) 21.7 %; Monocytes # (auto) 0.62 K/uL (0.11-0.59); Monocytes % (auto) 7.6 %; Neutrophils # (auto) 5.69 K/uL (1.4-6.5); Neutrophils % (auto) 69.2 %; Platelet Count 192 K/uL (130-400); RDW Coefficient of Variation 14.1 % (11.5-14.5); RDW Standard Deviation 44.6 fL (36.4-46.3); Red Blood Count 4.22 M/uL (4.7-6.1); White Blood Count 8.21 K/uL (4.8-10.8)
[2019-06-11] MEDS: HEPARIN SOD 5,000 UNIT/0.5 ML VIAL SQ SCH ×3 (06:17→21:59)
[2019-06-11 06:39] LABS: BUN Creatinine Ratio 10.3 (10-20); C Reactive Protein 13.4 mg/dl (0-0.29); Calcium 8.2 mg/dl (8.5-10.1); Creatinine Clr Calc Pharmacy 149.6 ml/min; Est GFR (African American) 100.8; Potassium 3.9 mmol/L (3.5-5.1)
[2019-06-11] MEDS: ACETAMINOPHEN 325 MG TAB PO PRN (08:05)
[2019-06-11] MEDS: VANCOMYCIN HCL 2,000 MG in SODIUM CHLORIDE 0.9% 500 ML IV SCH ×2 (08:07→18:48)
[2019-06-11] MEDS: ATORVASTATIN 20 MG TAB PO SCH (09:33)
[2019-06-11] MEDS: ESCITALOPRAM OXALATE 20 MG TAB PO SCH (09:33)
[2019-06-11] MEDS: FAMOTIDINE 20 MG in SYRINGE 3 ML IV SCH ×2 (09:33→21:59)
--- NOTE | 2019-06-11 13:40 | Hospitalist Progress Note ---
Date of Service June 11, 2019 Assessment & Plan (1) Cellulitis: Pt is a 39 y/o M Hx HTN, HLD, depression, morbid obesity. Presents with a fever and RLE >LLE pain and erythema. 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 The pt was febrile and borderline hypotensive on arrival to the ER, with tachycardia. He responded well to IVF and acetaminophen and was actually hypertensive on admission. Labs are notable for leukocytosis. Cellulitis with sepsis - initially placed on Ceftriaxone and Vanc pending culture results. Affected area delineated. 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 Is not a diabetic. Did not respond initially to Ceftriaxone -have since broadened coverage to Zosyn on 06/09 -continue Vancomycin -added on clinda for antitoxin effect x 48 hrs-helping -continue tylenol as needed for fevers -follow BCs-NGTD -repeat BCxsNGTD-drawn for continued fevers although likely from toxin effect (2) Sepsis: as above with leukocytosis, tachycardia, fever, cellulitis -treating with abx Now resolved (3) HTN (hypertension), benign: BPs elevated, was not getting his lisinopril -restart lisinopril in the AM (4) Hyperlipidemia: -continue statin (5) Obesity: BMI 55. Pt is actively working on losing weight and has lost 10 lbs in the last few weeks (6) Depression: stable -continue Lexapro (7) Dyspepsia: could be secondary to acute illness, stress Sounds like GERD-much improved now on pepcid -continue Pepcid bid (8) DVT prophylaxis: SQ Heparin Dispo-continued stay for cellulitis, possible dc tomorrow Subjective Feels much better, less pain, less redness. No further nausea or upset stomach,no heartburn. Denies CP or SOB. Review of Systems Review of Systems: All systems reviewed & are unremarkable except as noted in HPI & below Physical Exam Constitutional: WD/WN, vitals as above + morbidly obese Eyes: PERRL, conjunctivae normal, anicteric sclerae ENMT: external ear and nose normal, oropharynx normal Neck: trachea midline, no thyromegaly Respiratory: normal respiratory effort, lungs clear to auscultation Cardiovascular: Rate/Rhythm: regular rate and regular rhythm Heart Sounds: no murmur Extremities: + edema (1+ pitting edema of bilat LEs to the mid tibia) Gastrointestinal (Abdomen): normal bowel sounds, soft, nontender, no hepatosplenomegaly Musculoskeletal: Extremities: no cyanosis and no clubbing Skin: + rash (right ant/post leg w/ erythema from ankle to knee much improved) and + erythema (with streaking of erythema on right anteromedial thigh much improved) Neurologic: moves all extremities and awake; no focal motor deficits Psychiatric: A+Ox3, euthymic affect Results & Data Vital Signs (Past 12 Hours) Vital Signs Temp Pulse Resp BP Pulse Ox 06/11/19 07:15 36.8 C 89 18 122/78 95 Laboratory Results WBC down to 8 CRP 13, ESR 75 BCx NGTD x 2 PG Care Time/CCT Total # of Minutes Spent Total Time Spent with Patient: Total time spent is greater than 50% in coordination of care (as documented) at patient's floor/unit and/or counseling patient: (1) Cellulitis Laterality: right Site of cellulitis: extremity Site of cellulitis of extremity: lower extremity Qualified Code(s): L03.115 - Cellulitis of right lower limb (2) Sepsis Sepsis type: sepsis due to unspecified organism Qualified Code(s): A41.9 - Sepsis, unspecified organism
[2019-06-11] MEDS ORDERED: VANCOMYCIN TROUGH ONE (17:30)
--- NOTE | 2019-06-11 20:41 | Pharmacy Report ---
Pharmacy Abx Dose Short Note - Date of Service June 11, 2019 - Assessment & Plan Assessment 39 year old M receiving IV Vancomycin, Zosyn, and Clindamycin for treatment of RLE cellulitis Day # 4 of antimicrobial therapy. Plan Vancomycin * Trough level of 14.2 mcg/mL is therapeutic * Continue dose of 2000 mg IV every 10 hours * Goal trough level for cellulitis : 10 to 15 mcg/mL * Trough ordered for: 06/13/19 @ 0930 to ensure Vancomycin remains therapeutic Pharmacy will continue to follow and will adjust dose/frequency as necessary. Thank you.
[2019-06-12] MEDS: PIPERACILLIN/TAZOBACTAM 4.5 GM in DEXTROSE 5% 100 ML IV SCH ×2 (01:28→09:05)
[2019-06-12] MEDS: VANCOMYCIN HCL 2,000 MG in SODIUM CHLORIDE 0.9% 500 ML IV SCH ×2 (03:20→13:03)
[2019-06-12] MEDS ORDERED: VANCOMYCIN TROUGH ONE (03:30)
[2019-06-12] MEDS: HEPARIN SOD 5,000 UNIT/0.5 ML VIAL SQ SCH ×2 (06:04→12:59)
[2019-06-12 06:42] LABS: Creatinine Clr Calc Pharmacy 139.2 ml/min; Est GFR (African American) 92.4; Est GFR (Non-African American) 79.7
[2019-06-12] MEDS: ESCITALOPRAM OXALATE 20 MG TAB PO SCH (08:10)
[2019-06-12] MEDS: CLINDAMYCIN 600 MG in DEXTROSE 5% 50 ML IV SCH (08:10)
[2019-06-12] MEDS: ATORVASTATIN 20 MG TAB PO SCH (08:10)
[2019-06-12] MEDS: FAMOTIDINE 20 MG in SYRINGE 3 ML IV SCH (08:45)
[2019-06-12] MEDS ORDERED: LISINOPRIL 10 MG TAB PO SCH (09:00)
--- NOTE | 2019-06-12 12:06 | Discharge Summary ---
Date of Service June 12, 2019 Admission HPI Per Admitting Provider 39 y/o M Hx HTN, HLD, depression, morbid obesity. Presents with a fever and RLE pain and erythema. 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 The pt was febrile and borderline hypotensive on arrival to the ER. He responded well to IVF and acetaminophen and was actually hypertensive on admission. Labs are notable for leukocytosis. PMH: 1) Morbid obesity BMI 56 2) HTN 3) HLD 4) Depression Denies a surgical history Social: Does not smoke. Occasional beer. 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 Family: Denies a significant family history. Principal Diagnosis Lower extremity cellulitis Discharge Exam Constitutional WD/WN, vitals as above + morbidly obese Eyes PERRL, conjunctivae normal, anicteric sclerae Neck trachea midline, no thyromegaly Respiratory normal respiratory effort, lungs clear to auscultation Cardiovascular Rate/Rhythm: regular rate and regular rhythm Heart Sounds: no murmur Extremities: + edema (1+ pitting edema of bilat LEs to the mid tibia) Gastrointestinal (Abdomen) normal bowel sounds, soft, nontender, no hepatosplenomegaly Musculoskeletal Extremities: no cyanosis and no clubbing Skin + rash (right ant/post leg w/ erythema from ankle to knee much improved) and + erythema (with streaking of erythema on right anteromedial thigh much improved) Neurologic moves all extremities and awake; no focal motor deficits Psychiatric A+Ox3, euthymic affect Discharge Data Allergies Allergy/AdvReac Type Severity Reaction Status Date / Time No Known Allergies Allergy Unverified 06/08/19 17:13 Consultations None Ordered Studies CXR Hospital Course (1) Cellulitis: Pt is a 39 y/o M Hx HTN, HLD, depression, morbid obesity. Presents with a fever and RLE >LLE pain and erythema. 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 The pt was febrile and borderline hypotensive on arrival to the ER, with tachycardia. He responded well to IVF and acetaminophen and was actually hypertensive on admission. Labs are notable for leukocytosis. Cellulitis with sepsis - initially placed on Ceftriaxone and Vanc pending culture results. Affected area delineated. 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 Is not a diabetic. Did not respond initially to Ceftriaxone -then broadened coverage to Zosyn on 06/09 -alsp continued Vancomycin and added on clinda for antitoxin effect x 48 hrs- helping, now much improved -follow BCs-NGTD -finish out course of clindamycin upon discharge, keep leg elevated when possible (2) Sepsis: as above with leukocytosis, tachycardia, fever, cellulitis -treating with abx Now resolved (3) HTN (hypertension), benign: BPs controlled -continue lisinopril (4) Hyperlipidemia: -continue statin (5) Obesity: BMI 55. Pt is actively working on losing weight and has lost 10 lbs in the last few weeks (6) Depression: stable -continue Lexapro (7) Dyspepsia: could be secondary to acute illness, stress Sounds like GERD-much improved now on pepcid -continue Pepcid bid prn at home (8) DVT prophylaxis: SQ Heparin was provided Dispo-stable for dc to home Total Time Total Time Spent Total Time Spent (In Minutes): >30 min Total Time Includes: Examination of the Patient, Discharge Planning and Medication Reconciliation Discharge Plan Discharge Items Patient Disposition: Home - Self-Care Reason For Visit: CELLULITIS AND SEPSIS Discharge Diagnosis: Lower extremity cellulitis, sepsis Condition: Good Discharge Goals: Decrease discomfort, Diagnostic testing, Improve disease control, Learn about illness and Therapeutic intervention Activity: As commented below Activity Comment: Remain out of work until Thu06/15/19 Bathing: No limitations Exercise/Sports: Gradually increase as tolerated Exercise Comment: Please keep right leg elevated when sitting or lying down. Non-emergency contact: Primary Care Provider Call non-emergency contact if: you have any medication questions, your symptoms worsen, your pain is not controlled, your pain is worsening, your pain is unusual for you, your pain is concerning for you, you have a fever and your temperature is above 100.5 Follow-up/Referrals: Etienne Turk Jr, [Primary Care Provider] - 06/15/19 (Please keep your regularly scheduled appointment on Thu with Dr. Turk. ) Diet: Heart Healthy Addtl Provider Instructions: Please finish out the clindamycin three times daily x 7 more days.You can eat yogurt or take a probiotic OTC to help prevent diarrhea. If you develop severe diarrhea (more than 3-5x/day) or abdominal pains, please let your doctor know as you could have Clostridium difficile infection. If your symptoms return (fever/chills, etc.) or you have worsening redness or pain in the legs again, please return to the hospital. Prescriptions: Continued lisinopril 10 mg tablet 10 mg PO QAM RF: 0 escitalopram oxalate 20 mg tablet 20 mg PO QAM RF: 0 atorvastatin 20 mg tablet 20 mg PO QAM RF: 0 Stand-Alone Forms: My [facility], Work/School Release (Inpt) Discharge Orders: Discharge Order (Routine); Ordered 06/12/19 Ordered By: Adali Canada Admission Data Admit Date/Time: 06/08/19 19:46 Attending Provider: Adali Canada Admit Provider: Christiano Alvarado Primary Care Provider: Etienne Turk Jr Other Providers: Christiano Alvarado Service: Medical Other Interventions: Discharge Summary Assessment (RN) Last Done: 06/12/19 12:32 Pending Studies at Discharge: Yes (Final blood culture results-no growth to date) DC Date/Time DO NOT enter until pt leaves facility: 06/12/19 13:50
[2019-06-13] MEDS ORDERED: VANCOMYCIN TROUGH ONE (09:30)
== END 2019-06-12 13:50 | disposition home or self-care (01) | DRG 872 ==
LOC: ED 16:39 → 2N 19:46 → SUATTDRO 19:46 → 2N 20:58 → 4W 06-09 22:25
DX: E66.01 Morbid (severe) obesity due to excess calories; F32.9 Major depressive disorder, single episode, unspecified; A41.9 Sepsis, unspecified organism; I10 Essential (primary) hypertension; L03.115 Cellulitis of right lower limb; E78.5 Hyperlipidemia, unspecified; Z68.43 Body mass index [BMI] 50.0-59.9, adult

== ENCOUNTER 2020-04-27 22:14 | Observation (INO) ==
[2020-04-27] MEDS ORDERED: KETOROLAC 30 MG/ML VIAL IV STA (23:27)
[2020-04-27] MEDS ORDERED: SODIUM CHLORIDE 0.9% 1000ML 1,000 ML IV SCH (23:30)
--- NOTE | 2020-04-27 23:30 | Emergency Department Note ---
History of Present Illness General Chief complaint: Fever Stated complaint: FEVER, CHILLS, REDNESS AND PAIN RIGHT LEG Time Seen by Provider: 04/27/20 23:13 History of Present Illness Maximum Pain Intensity: 2 This is a 39-year-old male presenting to the emergency department for evaluation of fevers and chills worsening over the past several hours. The patient has a past history of cellulitis and sepsis, primarily to his legs, and noticed that his right leg has been red and swollen today. He was feeling unwell tonight, took his temperature, and it was elevated. He did take Tylenol prior to arrival. The patient is not having significant ear pain, sore throat, chest pain, chest tightness, shortness of breath, or abdominal pain. 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 He does not have history of DVT in the past. He rates his current discomfort a 2/10. Home Medications Home Medications Medication Instructions Recorded Confirmed Type atorvastatin 20 mg PO QAM 06/08/19 04/28/20 History escitalopram oxalate 20 mg PO QAM 06/08/19 04/28/20 History lisinopril 10 mg PO QAM 06/08/19 04/28/20 History buspirone 10 mg tablet 10 mg PO BID 11/30/19 04/28/20 History Allergies Allergy/AdvReac Type Severity Reaction Status Date / Time No Known Allergies Allergy Verified 04/28/20 00:03 Past Med/Surg History Medical History Cellulitis Depression High cholesterol Hypertension Surgical History No pertinent past surgical history Family History (Updated 04/28/20 @ 03:22 by Elizabeth Alvarez DO) Other Diabetes Heart disease Social History Preferred Language: Cambodian Communication Ability: Effective Substance Abuse Nurse Required: No Beliefs That Will Affect Care: None Current Living Situation: Spouse Feels Safe at Home: Yes Smoking Status: Never smoker Hx Alcohol Use: Yes Alcohol type: beer and hard liquor Hx Substance Use: No Review of Systems A total of 10 systems reviewed and were otherwise negative Physical Exam Vital Signs Vital Signs - 24 hr 04/28/20 01:43 04/28/20 01:58 Temperature 37.3 C Temperature Source Oral Pulse Rate [Apical] 107 H Respiratory Rate 22 Respiratory Effort / Characteristics Non-Labored Spontaneous Respiratory Depth Normal Blood Pressure [Right Arm] 154/79 H Blood Pressure Mean [Right Arm] 104 Blood Pressure Position [Right Arm] Sitting Pulse Oximetry 95 Oxygen Delivery Method Room Air VITALS: Vitals are noted on the nurse's note and reviewed by myself. Vital signs with low-grade fever and tachycardia GENERAL: Well-developed, well-nourished, white male, who is in no acute distress and resting comfortably. Patient is cooperative with the examination. HEAD: Normocephalic atraumatic. EARS: External ear normal. External auditory canals clear, tympanic membranes pearly alexandra without erythema or effusion bilaterally. EYES: Pupils equal round and reactive to light and accommodation. Conjunctivae without injection, sclerae without icterus. Extraocular movements intact. NOSE: Patent, turbinates without inflammation or discharge. MOUTH: Mucous membranes moist. Tonsils are not enlarged. Pharynx without erythema, blood, or exudate. Uvula midline. Airway patent. NECK: Supple without nuchal rigidity. No lymphadenopathy. No thyromegaly. Cervical spine is nontender. HEART: Tachycardic rate with regular rhythm LUNGS: Clear to auscultation bilaterally without wheezes, rales or rhonchi. No retractions or accessory muscle use. ABDOMEN: Positive normal bowel sounds x 4. Soft, nontender, without masses or organomegaly. No guarding or rebound tenderness. MUSCULOSKELETAL: Erythema and edema appreciated primarily to the medial aspect of the right calf. No palpable cord. This area is concerning for cellulitis. Neurovascular status is intact distally. No tenderness of the right foot or right knee. NEURO: Patient was alert and oriented to person place and time. CN II through XII grossly intact. Course Administered Medications Buspirone HCl (Buspar) 10 mg PO BID [facility] Stop: 05/28/20 08:59 Last Admin: 04/28/20 20:29 Dose: 10 mg Documented by: [id number] Admin: 04/28/20 07:24 Dose: 10 mg Documented by: [id number] Enoxaparin Sodium (Lovenox) 40 mg SQ QAM [facility] Stop: 05/28/20 08:59 Last Admin: 04/28/20 07:24 Dose: 40 mg Documented by: [id number] [facility] ([facility]ro [facility]) [facility] [place] Stop: 05/28/20 08:59 Last Admin: 04/28/20 07:24 Dose: 20 mg Documented by: [id number] Ceftriaxone Sodium 2,000 mg/ (Dextrose) 70 mls @ 100 mls/hr IV Q24H [facility]; Protocol Stop: 05/05/20 05:59 Last Infusion: 04/28/20 07:23 Dose: 0 mls/hr Documented by: [id number] Admin: 04/28/20 06:31 Dose: 100 mls/hr Documented by: [id number] Ioversol (Optiray 320 125ml) 120 ml IV ONCE PRN PRN Reason: Interaction Checking Stop: 05/02/20 01:58 Last Admin: 04/28/20 02:00 Dose: 120 ml Documented by: [id number] Lisinopril (Zestril) [address] [facility] Stop: 05/28/20 08:59 Last Admin: 04/28/20 07:24 Dose: 10 mg Documented by: [id number] Discontinued Medications Sodium Chloride (Nss 1000ml) 1,000 mls @ 999 mls/hr IV .Q1H1M [facility] Stop: 04/28/20 00:30 Last Infusion: 04/28/20 02:58 Dose: 0 mls/hr Documented by: [id number] Admin: 04/28/20 00:42 Dose: 999 mls/hr Documented by: [id number] Vancomycin HCl 2,750 mg/ (Sodium Chloride) 555 mls @ 200 mls/hr IV NOW ONE Stop: 04/28/20 04:47 Last Infusion: 04/28/20 06:33 Dose: 0 mls/hr Documented by: [id number] Admin: 04/28/20 03:10 Dose: 200 mls/hr Documented by: [id number] Sodium Chloride (Nss 1000ml) 1,000 mls @ 125 mls/hr IV .Q8H [facility] Stop: 04/28/20 20:29 Last Infusion: 04/28/20 20:53 Dose: 0 mls/hr Documented by: [id number] Admin: 04/28/20 12:53 Dose: 125 mls/hr Documented by: [id number] Infusion: 04/28/20 12:53 Dose: 0 mls/hr Documented by: [id number] Admin: 04/28/20 04:50 Dose: 125 mls/hr Documented by: [id number] Daptomycin 500 mg/ Syringe 10 mls @ 0 mls/min IV Q24H [facility]; Protocol Stop: 05/05/20 09:59 Last Admin: 04/28/20 09:31 Dose: 5 mls/min Documented by: [id number] Ketorolac Tromethamine (Toradol) 30 mg IV NOW STA Stop: 04/27/20 23:28 Last Admin: 04/28/20 00:41 Dose: 30 mg Documented by: [id number] Medical Decision Making Differential Diagnosis Differential diagnosis: Etiologies such as sepsis, DVT, cellulitis, viral syndrome, otitis, pharyngitis, pneumonia, influenza, meningitis, urinary tract infection, septic arthritis, soft tissue infectious process, intra-abdominal process, sepsis, bacteremia, as well as others were entertained. Laboratory Data Result diagrams: 04/27/20 23:33 04/27/20 23:33 Lab Results 04/27/20 04/27/20 04/27/20 Range/Units 23:33 23:33 23:33 WBC 14.95 H (4.8-10.8) K/uL RBC 5.25 (4.7-6.1) M/uL Hgb 15.2 (14.0-18.0) g/dL Hct 45.3 (42-52) % MCV 86.3 (80-100) fL MCH 29.0 (25-34) pg MCHC 33.6 (32-36) g/dL RDW Std Deviation 43.8 (36.4-46.3) fL RDW Coeff of Ivy 13.9 (11.5-14.5) % Plt Count 214 (130-400) K/uL MPV 10.3 (7.4-10.4) fL Immature Gran % (Auto) 0.3 % Neut % (Auto) 82.7 % Lymph % (Auto) 11.2 % [place] % (Auto) 5.1 % Eos % (Auto) 0.5 % Baso % (Auto) 0.2 % Immature Gran # (Auto) 0.04 H (0.00-0.02) K/uL Neut # (Auto) 12.38 H (1.4-6.5) K/uL Lymph # (Auto) 1.67 (1.2-3.4) K/uL [place] # (Auto) 0.76 H (0.11-0.59) K/uL Eos # (Auto) 0.07 (0-0.5) K/uL Baso # (Auto) 0.03 (0-0.2) K/uL D-Dimer 530 H* (0-500) ug/L FEU Sodium 137 (136-145) mmol/L Potassium 4.1 (3.5-5.1) mmol/L Chloride 106 (98-107) mmol/L Carbon Dioxide 27 (21-32) mmol/L Anion Gap 4.0 (3-11) BUN 12 (7-18) mg/dl Creatinine 1.14 (0.6-1.4) mg/dl Est Cr Clr Drug Dosing 147.2 ml/min Est GFR ( Amer) 93.4 Est GFR (Non-Af Amer) 80.6 BUN/Creatinine Ratio 10.5 (10-20) Glucose 103 H (70-99) mg/dl POC Lactic Acid Randall (0.90-1.70) mmol/L Calcium 9.3 (8.5-10.1) mg/dl Magnesium 2.1 (1.8-2.4) mg/dl Total Bilirubin 0.3 (0.2-1) mg/dl AST 21 (15-37) U/L ALT 50 (12-78) U/L Alkaline Phosphatase 109 (45-117) U/L Troponin I < 0.015 (0-0.045) ng/ml Total Protein 7.7 (6.4-8.2) gm/dl Albumin 3.7 (3.4-5.0) gm/dl Globulin 4.0 (2.5-4.0) gm/dl Albumin/Globulin Ratio 0.9 (0.9-2) Specimen Hemolysis Influenza Type A (PCR) (Neg) Influenza Type B (PCR) (Neg) 04/27/20 04/28/20 Range/Units 23:33 00:43 WBC (4.8-10.8) K/uL RBC (4.7-6.1) M/uL Hgb (14.0-18.0) g/dL Hct (42-52) % MCV (80-100) fL MCH (25-34) pg MCHC (32-36) g/dL RDW Std Deviation (36.4-46.3) fL RDW Coeff of Ivy (11.5-14.5) % Plt Count (130-400) K/uL MPV (7.4-10.4) fL Immature Gran % (Auto) % Neut % (Auto) % Lymph % (Auto) % [place] % (Auto) % Eos % (Auto) % Baso % (Auto) % Immature Gran # (Auto) (0.00-0.02) K/uL Neut # (Auto) (1.4-6.5) K/uL Lymph # (Auto) (1.2-3.4) K/uL [place] # (Auto) (0.11-0.59) K/uL Eos # (Auto) (0-0.5) K/uL Baso # (Auto) (0-0.2) K/uL D-Dimer (0-500) ug/L FEU Sodium (136-145) mmol/L Potassium (3.5-5.1) mmol/L Chloride (98-107) mmol/L Carbon Dioxide (21-32) mmol/L Anion Gap (3-11) BUN (7-18) mg/dl Creatinine (0.6-1.4) mg/dl Est Cr Clr Drug Dosing ml/min Est GFR ( Amer) Est GFR (Non-Af Amer) BUN/Creatinine Ratio (10-20) Glucose (70-99) mg/dl POC Lactic Acid Randall 2.11 H (0.90-1.70) mmol/L Calcium (8.5-10.1) mg/dl Magnesium (1.8-2.4) mg/dl Total Bilirubin (0.2-1) mg/dl AST (15-37) U/L ALT (12-78) U/L Alkaline Phosphatase (45-117) U/L Troponin I (0-0.045) ng/ml Total Protein (6.4-8.2) gm/dl Albumin (3.4-5.0) gm/dl Globulin (2.5-4.0) gm/dl Albumin/Globulin Ratio (0.9-2) Specimen Hemolysis Influenza Type A (PCR) Neg for Influ A (Neg) Influenza Type B (PCR) Neg for Influ B (Neg) Imaging Data Radiologist's Impression: ULTRASOUND RIGHT LOWER EXTREMITY VENOUS CLINICAL HISTORY: Right leg swelling. COMPARISON STUDY: Right lower extremity venous ultrasound dated 01/20/2018. TECHNIQUE: Real-time, grayscale, and color Doppler sonography of the deep veins of the right lower extremity was performed from the inguinal crease to the calf. Compression and augmentation were utilized. FINDINGS: There is no sonographic evidence of deep venous thrombosis identified in the right lower extremity. The common femoral, superficial femoral, and popliteal veins are patent and normally compressible. The greater saphenous vein and the profunda femoris vein at the junction with the common femoral vein are clear. The visualized calf veins are patent. IMPRESSION: There is no sonographic evidence of deep venous thrombosis identified in the right lower extremity. CT angio chest PE protocol CT DOSE: 954.15 mGy.cm HISTORY: Pain. Edema. Leg swelling. Tachy. R/O PE. Elevated dimer TECHNIQUE: Multiaxial CT images of the chest were performed following the intravenous administration of contrast to evaluate the pulmonary arteries. Maximal intensity projection images were also obtained. A dose lowering tech nique was utilized adhering to the principles of ALARA. COMPARISON STUDY: None. FINDINGS: There is a normal caliber thoracic aorta with no evidence for dissection. There is no evidence for pulmonary embolus. No pleural effusions. No pneumothorax. The liver and spleen are unremarkable. No mediastinal or hilar lymphadenopathy. The central airways are patent. The lungs are clear. Suboptimal exam due to patient Mr. motion and body habitus. IMPRESSION: No evidence for pulmonary embolus. Lungs are grossly clear. XR chest 1V portable CLINICAL HISTORY: Fever COMPARISON STUDY: 06/08/2019 FINDINGS: The heart is mildly enlarged. Interstitial prominence is likely related to technical factors given the patient's body habitus. There is no overt failure. There is no lobar consolidation. There are no pleural effusions.[ IMPRESSION: Mild cardiomegaly. No acute findings. ECG Data Attestation: I personally reviewed and interpreted this ECG as follows: Indication: + tachycardia Additional Comments: Sinus tachycardia @[address] elevation Otherwise normal ECG When compared with ECG of 29-MAY-2011 12:01, No significant change was found MDM Narrative Physical exam and history were performed. Nursing notes, EMR, and Medication List were personally reviewed. Patient appears to have fever, tachycardia, and exam consistent with a right lower leg cellulitis. IV access was established and labs were obtained. The patient was hydrated with normal saline and given IV Toradol for comfort. 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 The patient's blood work is as above and was reviewed. He does have an elevated white blood cell count of 14.95. He does not have a significant anemia or gross electrolyte imbalance. Lactic acid is elevated at 2.11 with blood cultures pending. Troponin x1 is negative. Influenza screen was negative. Ultrasound was reviewed by myself and radiology showing no acute process. Chest x-ray was also without obvious acute process. The patient does have an elevated d-dimer of 580, and because of this I did elect perform CT scan of the chest. CT scan was reviewed and also without significant acute findings. An order was placed for continuous cardiac monitoring. The monitor shows a rate of 91 with normal sinus rhythm. Overall the patient does not appear well for discharge home. He appears to have a right lower leg cellulitis and findings concerning for sepsis. He was given 2750 mg IV vancomycin. The case was discussed with the on-call hospitalist who agreed to evaluate the patient here in the ER. Please see hospitalist dictation for further patient course, plan, and disposition. The chart was completed utilizing [employer] Speech Voice Recognition Software. Grammatical errors, random word insertions, pronoun errors, and incomplete sentences are an occasional consequence of this system due to software limitations, ambient noise, and hardware issues. Any formal questions or concerns about the content, text, or information contained within the body of this dictation should be directly addressed to the provider for clarification. . Impression & Plan Sepsis, Cellulitis Discharge Plan Visit Data *Final* Discharge Date/Time: 04/28/20 03:45 Chief Complaint: Fever Stated Complaint: FEVER, CHILLS, REDNESS AND PAIN RIGHT LEG ED Provider: Francia Cuenca ED Midlevel Provider: Bairon Wolf Discharge Problem: Sepsis, Cellulitis Patient Disposition: Admitted As Inpatient Discharge Instructions Interventions: ED Discharge Assessment Last Done: 04/28/20 03:45 Discharge Problem: Sepsis Qualifiers: Sepsis type: sepsis due to unspecified organism Severe sepsis acute organ dysfunction type: unspecified Cellulitis Qualifiers: Site of cellulitis: extremity Site of cellulitis of extremity: lower extremity Laterality: right Qualified Code(s): L03.115 - Cellulitis of right lower limb
[2020-04-27 23:45] LABS: Basophils # (auto) 0.03 K/uL (0-0.2); Basophils % (auto) 0.2 %; Eosinophils # (auto) 0.07 K/uL (0-0.5); Eosinophils % (auto) 0.5 %; Hematocrit (blood only) 45.3 % (42-52); Hemoglobin 15.2 g/dL (14.0-18.0); Immature Granulocytes # (auto) 0.04 K/uL (0.00-0.02); Immature Granulocytes % (auto) 0.3 %; Lymphocytes # (auto) 1.67 K/uL (1.2-3.4); Lymphocytes % (auto) 11.2 %; Mean Corpuscular Hgb Conc 33.6 g/dL (32-36); Mean Corpuscular Volume 86.3 fL (80-100); Mean Platelet Volume 10.3 fL (7.4-10.4); Monocytes # (auto) 0.76 K/uL (0.11-0.59); Monocytes % (auto) 5.1 %; Neutrophils # (auto) 12.38 K/uL (1.4-6.5); Neutrophils % (auto) 82.7 %; Platelet Count 214 K/uL (130-400); RDW Coefficient of Variation 13.9 % (11.5-14.5); RDW Standard Deviation 43.8 fL (36.4-46.3); Red Blood Count 5.25 M/uL (4.7-6.1); White Blood Count 14.95 K/uL (4.8-10.8)
[2020-04-28 00:08] LABS: D Dimer 530 ug/L FEU (0-500)
[2020-04-28 00:12] LABS: Alanine Aminotransferase 50 U/L (12-78); Albumin Level 3.7 gm/dl (3.4-5.0); Aspartate Aminotransferase 21 U/L (15-37); BUN Creatinine Ratio 10.5 (10-20); Blood Urea Nitrogen 12 mg/dl (7-18); Calcium 9.3 mg/dl (8.5-10.1); Carbon Dioxide 27 mmol/L (21-32); Chloride 106 mmol/L (98-107); Creatinine Clr Calc Pharmacy 147.2 ml/min; Est GFR (African American) 93.4; Est GFR (Non-African American) 80.6; Glucose 103 mg/dl (70-99); Potassium 4.1 mmol/L (3.5-5.1); Sodium 137 mmol/L (136-145)
[2020-04-28 00:14] LABS: Albumin Globulin Ratio 0.9 (0.9-2); Alkaline Phosphatase 109 U/L (45-117); Bilirubin,Total 0.3 mg/dl (0.2-1); Total Protein 7.7 gm/dl (6.4-8.2); Troponin I < 0.015 ng/ml (0-0.045)
[2020-04-28 00:23] LABS: Influenza A virus by PCR Neg for Influ A (Neg); Influenza B virus by PCR Neg for Influ B (Neg)
[2020-04-28] MEDS ORDERED: OPTIRAY 320 125ml IV PRN (01:59)
[2020-04-28] MEDS ORDERED: VANCOMYCIN CONSULT ACTIVE PRN ×2 (02:01→03:58)
[2020-04-28] MEDS ORDERED: VANCOMYCIN HCL 2,750 MG in SODIUM CHLORIDE 0.9% 500 ML IV ONE (02:01)
--- NOTE | 2020-04-28 03:01 | History & Physical Report ---
Date of Service April 28, 2020 Assessment & Plan (1) Cellulitis: RLE cellulitis - patient tachycardic, leukocytosis, tachypneic, mildly elevated lactic acid. He is non-toxic in appearance -Observation to medical floor -Follow cultures -NSS at 125mL/hr x 2 liters -Vancomycin and Ceftriaxone for empiric antibiotics -MRSA Nasal swab -Monitor area of cellulitis daily for progression -Tylenol PRN fever, Toradol PRN pain, Zofran PRN nausea Present on Admission?: Yes (2) HTN (hypertension), benign: Blood pressure stable at present -Continue Lisinopril 10mg po daily -Continue to monitor Present on Admission?: Yes (3) Hyperlipidemia: Chronic. Stable -Continue Atorvastatin 20mg po daily Present on Admission?: Yes (4) Depression: Chronic. Stable -Continue Escitalopram and Buspirone F/E/N - NSS at 125ml/hr x 2 liters, monitor electrolytes, heart healthy diet as tolerated Ppx - Lovenox 40mg daily Code - Full Dispo - Observation to med/tele Present on Admission?: Yes Admission and Anticipated Discharge Date Admission Date: 04/28/20 Anticipated date of discharge: 04/28/20 History of Present Illness Chief Complaint: RLE cellulitis Primary Care Provider: Etienne Turk Jr, DO Tylor Walsh is a 39yo C male with history of HTN, HLP and Anxiety presenting with RLE cellulitis. He reports that last evening around 18:00 he acutely dev eloped chills and subjective fever as well as worsening pain in his RLE. He took some Tylenol then came to the ER. He denies cough/SOB/CP/Abdominal pain/diarrhea or constipation. He has some mild nausea On arrival to the ER he was found to have an elevated temperature at 37.9, tachycardic at 114, RR of 22 and saturating 95% on room air. ER labs with leukocytosis, mildly elevated lactate at 2.11 and elevated D-dimer at 530. ER Course: Toradol, Vancomycin Allergies Allergy/AdvReac Type Severity Reaction Status Date / Time No Known Allergies Allergy Verified 04/28/20 00:03 Home Medications Home Medications Medication Instructions Recorded Confirmed Type atorvastatin 20 mg PO QAM 06/08/19 04/28/20 History escitalopram oxalate 20 mg PO QAM 06/08/19 04/28/20 History lisinopril 10 mg PO QAM 06/08/19 04/28/20 History buspirone 10 mg tablet 10 mg PO BID 11/30/19 04/28/20 History Past Med/Surg History Medical History Cellulitis Depression High cholesterol Hypertension Surgical History No pertinent past surgical history Family History (Updated 04/28/20 @ 03:22 by Elizabeth Alvarez DO) Other Diabetes Heart disease Social History Preferred Language: Thai Communication Ability: Effective Compensation And Benefits Administrator Required: No Beliefs That Will Affect Care: None Current Living Situation: Spouse Feels Safe at Home: Yes Smoking Status: Never smoker Hx Alcohol Use: Yes Alcohol type: beer Hx Substance Use: No Review of Systems Review of Systems: All systems reviewed & are unremarkable except as noted in HPI & below Physical Exam Physical Exam: General: obese C male patient resting comfortably, NAD, non- toxic in appearance, AA&O x 4 Skin: warm, dry, intact, skin on RLE lateral leg erythematous, warm, slightly tender, no crepitus/bullae/lymphangitic streaking HEENT: NC/AT, PERRL, EOMI, anicteric sclera, conjunctiva without injection, external ear normal to inspection and nontender, nares patent, moist mucus membranes, dentition intact, no oropharyngeal lesions, neck supple, trachea midline, no LAD, no thyromegaly, no JVD Heart: +S1/S2, regular, tachycardic, no m/r/g Lungs: equal air entry bilaterally, no rales/rhonchi/wheezes Abd: +BS, soft, NT/ND, no masses/organomegaly/ascites Ext: warm, 2+ pulses in UE/LE bilaterally, no clubbing/cyanosis or edema, cellulitis of RLE as above Neuro: nonfocal, patient AA&O x 4, speech intact, no facial droop, moving all extremities on command with equal strength 5/5 Results & Data Results & Data ([facility]) Vital Signs (Past 12 Hours) Vital Signs Temp Pulse Pulse Resp BP BP Pulse Ox 04/28/20 01:58 37.3 C 04/28/20 01:43 107 H 22 154/79 H 95 04/27/20 23:46 107 H 19 143/91 H 96 04/27/20 23:31 108 H 95 04/27/20 22:23 37.9 C H 114 H 22 111/74 95 Laboratory Results Lab Results 04/27/20 04/27/20 04/27/20 Range/Units 23:33 23:33 23:33 WBC 14.95 H (4.8-10.8) K/uL RBC 5.25 (4.7-6.1) M/uL Hgb 15.2 (14.0-18.0) g/dL Hct 45.3 (42-52) % MCV 86.3 (80-100) fL MCH 29.0 (25-34) pg MCHC 33.6 (32-36) g/dL RDW Std Deviation 43.8 (36.4-46.3) fL RDW Coeff of Ivy 13.9 (11.5-14.5) % Plt Count 214 (130-400) K/uL MPV 10.3 (7.4-10.4) fL Immature Gran % (Auto) 0.3 % Neut % (Auto) 82.7 % Lymph % (Auto) 11.2 % [place] % (Auto) 5.1 % Eos % (Auto) 0.5 % Baso % (Auto) 0.2 % Immature Gran # (Auto) 0.04 H (0.00-0.02) K/uL Neut # (Auto) 12.38 H (1.4-6.5) K/uL Lymph # (Auto) 1.67 (1.2-3.4) K/uL [place] # (Auto) 0.76 H (0.11-0.59) K/uL Eos # (Auto) 0.07 (0-0.5) K/uL Baso # (Auto) 0.03 (0-0.2) K/uL D-Dimer 530 H* (0-500) ug/L FEU Sodium 137 (136-145) mmol/L Potassium 4.1 (3.5-5.1) mmol/L Chloride 106 (98-107) mmol/L Carbon Dioxide 27 (21-32) mmol/L Anion Gap 4.0 (3-11) BUN 12 (7-18) mg/dl Creatinine 1.14 (0.6-1.4) mg/dl Est Cr Clr Drug Dosing 147.2 ml/min Est GFR ( Amer) 93.4 Est GFR (Non-Af Amer) 80.6 BUN/Creatinine Ratio 10.5 (10-20) Glucose 103 H (70-99) mg/dl POC Lactic Acid Randall (0.90-1.70) mmol/L Calcium 9.3 (8.5-10.1) mg/dl Total Bilirubin 0.3 (0.2-1) mg/dl AST 21 (15-37) U/L ALT 50 (12-78) U/L Alkaline Phosphatase 109 (45-117) U/L Troponin I < 0.015 (0-0.045) ng/ml Total Protein 7.7 (6.4-8.2) gm/dl Albumin 3.7 (3.4-5.0) gm/dl Globulin 4.0 (2.5-4.0) gm/dl Albumin/Globulin Ratio 0.9 (0.9-2) Specimen Hemolysis Influenza Type A (PCR) (Neg) Influenza Type B (PCR) (Neg) 04/27/20 04/28/20 Range/Units 23:33 00:43 WBC (4.8-10.8) K/uL RBC (4.7-6.1) M/uL Hgb (14.0-18.0) g/dL Hct (42-52) % MCV (80-100) fL MCH (25-34) pg MCHC (32-36) g/dL RDW Std Deviation (36.4-46.3) fL RDW Coeff of Ivy (11.5-14.5) % Plt Count (130-400) K/uL MPV (7.4-10.4) fL Immature Gran % (Auto) % Neut % (Auto) % Lymph % (Auto) % [place] % (Auto) % Eos % (Auto) % Baso % (Auto) % Immature Gran # (Auto) (0.00-0.02) K/uL Neut # (Auto) (1.4-6.5) K/uL Lymph # (Auto) (1.2-3.4) K/uL [place] # (Auto) (0.11-0.59) K/uL Eos # (Auto) (0-0.5) K/uL Baso # (Auto) (0-0.2) K/uL D-Dimer (0-500) ug/L FEU Sodium (136-145) mmol/L Potassium (3.5-5.1) mmol/L Chloride (98-107) mmol/L Carbon Dioxide (21-32) mmol/L Anion Gap (3-11) BUN (7-18) mg/dl Creatinine (0.6-1.4) mg/dl Est Cr Clr Drug Dosing ml/min Est GFR ( Amer) Est GFR (Non-Af Amer) BUN/Creatinine Ratio (10-20) Glucose (70-99) mg/dl POC Lactic Acid Randall 2.11 H (0.90-1.70) mmol/L Calcium (8.5-10.1) mg/dl Total Bilirubin (0.2-1) mg/dl AST (15-37) U/L ALT (12-78) U/L Alkaline Phosphatase (45-117) U/L Troponin I (0-0.045) ng/ml Total Protein (6.4-8.2) gm/dl Albumin (3.4-5.0) gm/dl Globulin (2.5-4.0) gm/dl Albumin/Globulin Ratio (0.9-2) Specimen Hemolysis Influenza Type A (PCR) Neg for Influ A (Neg) Influenza Type B (PCR) Neg for Influ B (Neg) Diagnostic Findings Venous Doppler RLE- NO DVT CTPA - Limited - no large central PE. Liver and spleen prominent in size. Equivocol mural thickening gallbladder with artifact limiting evaluation. If there are RUQ symptoms could correlate with US. Hypoventilatory changes/atelectasis. Possible areas of air trapping Code Status & VTE Plan Code Status FULL VTE Prophylaxis Plan VTE Prophylaxis will be ordered: Yes PG Care Time/CCT Total # of Minutes Spent Total Time Spent with Patient: Total time spent is greater than 50% in coordination of care (as documented) at patient's floor/unit and/or counseling patient: Coding Level of Care Code 46887 OBS Care - Level 3 Diagnoses Cellulitis L03.115 Laterality: right Site of cellulitis: extremity Site of cellulitis of extremity: lower extremity HTN (hypertension), benign I10 Hyperlipidemia E78.5 Hyperlipidemia type: unspecified Depression F32.9 Depression Type: major depressive disorder Major depression recurrence: unspecified whether recurrent Active/Remission status: remission status unspecified (1) Cellulitis Laterality: right Site of cellulitis: extremity Site of cellulitis of extremity: lower extremity Qualified Code(s): L03.115 - Cellulitis of right lower limb (2) Hyperlipidemia Hyperlipidemia type: unspecified Qualified Code(s): E78.5 - Hyperlipidemia, unspecified (3) Depression Depression Type: major depressive disorder Major depression recurrence: unspecified whether recurrent Active/Remission status: remission status unspecified Qualified Code(s): F32.9 - Major depressive disorder, single episode, unspecified
[2020-04-28] MEDS ORDERED: KETOROLAC TROMETHAMINE 15 MG/ML VIAL IV PRN (03:58)
[2020-04-28] MEDS ORDERED: VANCOMYCIN HCL 1,000 MG in SODIUM CHLORIDE 0.9% 250 ML IV SCH (03:58)
[2020-04-28] MEDS ORDERED: ACETAMINOPHEN 325 MG TAB PO PRN (03:58)
[2020-04-28] MEDS ORDERED: ONDANSETRON INJ 2 MG/ML 2 ML VIAL IV PRN (03:58)
[2020-04-28 04:18] LABS: Magnesium 2.1 mg/dl (1.8-2.4)
[2020-04-28] MEDS ORDERED: DAPTOMYCIN CONSULT ACTIVE PRN (04:36)
[2020-04-28] MEDS: SODIUM CHLORIDE 0.9% 1000ML 1,000 ML IV SCH ×2 (04:50→12:53)
[2020-04-28] MEDS: cefTRIAXone SODIUM 2,000 MG in DEXTROSE 5% 50 ML IV SCH (06:31)
--- NOTE | 2020-04-28 06:40 | Electrocardiogram Report ---
Test Reason : Blood Pressure : / mmHG Vent. Rate : 108 BPM Atrial Rate : 108 BPM P-R Int : 142 ms QRS Dur : 098 ms QT Int : 346 ms P-R-T Axes : 027 005 024 degrees QTc Int : 463 ms Sinus tachycardia Otherwise normal ECG When compared with ECG of 29-MAY-2011 12:01, No significant change was found Confirmed by Dell Mitchell [id number] on 04/28/2020 6:40:16 AM Referred By: REFERRED SELF Confirmed By:Dell Mitchell
--- NOTE | 2020-04-28 07:15 | Ultrasound Report ---
ULTRASOUND RIGHT LOWER EXTREMITY VENOUS CLINICAL HISTORY: Right leg swelling. COMPARISON STUDY: Right lower extremity venous ultrasound dated 01/20/2018. TECHNIQUE: Real-time, grayscale, and color Doppler sonography of the deep veins of the right lower ex tremity was performed from the inguinal crease to the calf. Compression and augmentation were utilize d. FINDINGS: There is no sonographic evidence of deep venous thrombosis identified in the right lower ex tremity. The common femoral, superficial femoral, and popliteal veins are patent and normally blanca sible. The greater saphenous vein and the profunda femoris vein at the junction with the common femor al vein are clear. The visualized calf veins are patent. IMPRESSION: There is no sonographic evidence of deep venous thrombosis identified in the right lower extremity. ACT 112: Negative or not required by law. Electronically signed by: Matti Anderson M.D. 04/28/2020 7:13 AM
--- NOTE | 2020-04-28 07:16 | XRay Report ---
XR chest 1V portable CLINICAL HISTORY: Fever COMPARISON STUDY: 06/08/2019 FINDINGS: The heart is mildly enlarged. Interstitial prominence is likely related to technical factor s given the patient's body habitus. There is no overt failure. There is no lobar consolidation. There are no pleural effusions.[ IMPRESSION: Mild cardiomegaly. No acute findings. ACT 112: Negative or not required by law. Electronically signed by: Sheng Montes M.D. 04/28/2020 7:15 AM
[2020-04-28] MEDS: lisinopriL 10 MG TAB PO SCH (07:24)
[2020-04-28] MEDS: ENOXAPARIN INJ 40 MG/0.4 ML SYR SQ SCH (07:24)
[2020-04-28] MEDS: ESCITALOPRAM OXALATE 20 MG TAB PO SCH (07:24)
--- NOTE | 2020-04-28 07:38 | CT Scan Report ---
CT angio chest PE protocol CT DOSE: 954.15 mGy.cm HISTORY: Pain. Edema. Leg swelling. Tachy. R/O PE. Elevated dimer TECHNIQUE: Multiaxial CT images of the chest were performed following the intravenous administration of contrast to evaluate the pulmonary arteries. Maximal intensity projection images were also obtaine d. A dose lowering technique was utilized adhering to the principles of ALARA. COMPARISON STUDY: None. FINDINGS: There is a normal caliber thoracic aorta with no evidence for dissection. There is no evide nce for pulmonary embolus. No pleural effusions. No pneumothorax. The liver and spleen are unremarkab le. No mediastinal or hilar lymphadenopathy. The central airways are patent. The lungs are clear. Sub optimal exam due to patient Mr. motion and body habitus. IMPRESSION: No evidence for pulmonary embolus. Lungs are grossly clear. ACT 112: Negative or not required by law. The above report was generated using voice recognition software. It may contain grammatical, syntax or spelling errors. Electronically signed by: Octavio Jackson M.D. 04/28/2020 7:37 AM
[2020-04-28] MEDS ORDERED: ATORVASTATIN 20 MG TAB PO SCH (09:00)
[2020-04-28] MEDS ORDERED: DAPTOmycin 500 MG in SYRINGE 0 ML IV SCH (10:00)
--- NOTE | 2020-04-28 14:23 | Hospitalist Progress Note ---
Date of Service April 28, 2020 Assessment & Plan (1) Cellulitis: RLE cellulitis - patient tachycardic, leukocytosis, tachypneic, mildly elevated lactic acid. He is non-toxic in appearance -Observation to medical floor -Follow cultures -NSS at 125mL/hr x 2 liters -Daptomycin and Ceftriaxone for empiric antibiotics started on admission, will de-escalate to ceftriaxone only Last dapto dose 04/28 9:30a -MRSA Nasal swab, denies hx of MRSA abscess/cellulitis -Monitor area of cellulitis daily for progression -Tylenol PRN fever, Toradol PRN pain, Zofran PRN nausea (2) HTN (hypertension), benign: Blood pressure stable at present -Continue Lisinopril 10mg po daily -Continue to monitor (3) Hyperlipidemia: Chronic. Stable -Continue Atorvastatin 20mg po daily (4) Depression: Chronic. Stable -Continue Escitalopram and Buspirone F/E/N - NSS at 125ml/hr x 2 liters, monitor electrolytes, heart healthy diet as tolerated Ppx - Lovenox 40mg daily Code - Full Dispo - Observation to med/tele Admission and Anticipated Discharge Date Admission Date: April 28, 2020 Subjective Pt feels much better. No further fevers/chills. States that the LE pain, redness, and swelling was not as intense as prior episodes "because I knew I should come as soon as I saw it". It is better today overall. Mild nausea without emesis. Some decrease in appetite. Pt denies fever, SOB, chest pain, abd pain, c/d, LE pain or swelling. Denies cut or other skin ulceration/laceration prior to this, but states that is similar to what has happened in the past with his cellulitis. Review of Systems Review of Systems: Pertinent positives and negatives reviewed in HPI--all others negative Physical Exam Constitutional: WD/WN, vitals as above Eyes: normal visual perez by confrontation and + anicteric sclerae Neck: normal visual inspection and trachea midline Respiratory: normal respiratory effort, lungs clear to auscultation Cardiovascular: Rate/Rhythm: regular rate and regular rhythm Gastrointestinal (Abdomen): Inspection/Auscultation: abdomen not distended Percussion/Palpation: abdomen soft; abdomen nontender Musculoskeletal: Head/Neck/Chest: normocephalic and head atraumatic negative for edema, peripheral pulses intact Skin: + erythema (redness moving away from ink lines, light pink discol oration) Neurologic: awake; not confused Speech / Cognition: normal speech Psychiatric: A+Ox3, euthymic affect Results & Data Results & Data ([facility]) Vital Signs (Past 12 Hours) Vital Signs Temp Pulse Pulse Resp BP Pulse Ox 04/28/20 11:28 37.3 C 102 H 20 162/80 H 94 04/28/20 06:45 37.5 C 108 H 18 132/72 94 04/28/20 05:16 104 H 04/28/20 05:00 36.9 C 106 H 18 150/80 H 97 04/28/20 03:12 102 H 20 169/92 H 95 PG Care Time/CCT Total # of Minutes Spent Total Time Spent with Patient: Total time spent is greater than 50% in coordination of care (as documented) at patient's floor/unit and/or counseling patient: Coding Level of Care Code 13422 Subseq Obs Care Lvl 3 Diagnoses Cellulitis L03.115 Laterality: right Site of cellulitis: extremity Site of cellulitis of extremity: lower extremity HTN (hypertension), benign I10 Hyperlipidemia E78.5 Hyperlipidemia type: unspecified Depression F32.9 Depression Type: major depressive disorder Major depression recurrence: unspecified whether recurrent Active/Remission status: remission status unspecified (1) Cellulitis Laterality: right Site of cellulitis: extremity Site of cellulitis of extremity: lower extremity Qualified Code(s): L03.115 - Cellulitis of right lower limb (2) Hyperlipidemia Hyperlipidemia type: unspecified Qualified Code(s): E78.5 - Hyperlipidemia, unspecified (3) Depression Depression Type: major depressive disorder Major depression recurrence: unspecified whether recurrent Active/Remission status: remission status unspecified Qualified Code(s): F32.9 - Major depressive disorder, single episode, unspecified
[2020-04-29] MEDS: cefTRIAXone SODIUM 2,000 MG in DEXTROSE 5% 50 ML IV SCH (07:24)
[2020-04-29] MEDS: ENOXAPARIN INJ 40 MG/0.4 ML SYR SQ SCH (07:25)
[2020-04-29] MEDS: lisinopriL 10 MG TAB PO SCH (07:25)
[2020-04-29] MEDS: ESCITALOPRAM OXALATE 20 MG TAB PO SCH (07:26)
[2020-04-29 08:33] LABS: Basophils # (auto) 0.02 K/uL (0-0.2); Basophils % (auto) 0.3 %; Eosinophils # (auto) 0.08 K/uL (0-0.5); Eosinophils % (auto) 1.1 %; Hematocrit (blood only) 42.1 % (42-52); Hemoglobin 13.7 g/dL (14.0-18.0); Immature Granulocytes # (auto) 0.02 K/uL (0.00-0.02); Immature Granulocytes % (auto) 0.3 %; Lymphocytes # (auto) 1.96 K/uL (1.2-3.4); Mean Corpuscular Hemoglobin 28.5 pg (25-34); Mean Corpuscular Hgb Conc 32.5 g/dL (32-36); Mean Corpuscular Volume 87.7 fL (80-100); Mean Platelet Volume 9.9 fL (7.4-10.4); Monocytes # (auto) 0.64 K/uL (0.11-0.59); Monocytes % (auto) 9.1 %; Neutrophils # (auto) 4.29 K/uL (1.4-6.5); Neutrophils % (auto) 61.2 %; Platelet Count 203 K/uL (130-400); RDW Coefficient of Variation 14.2 % (11.5-14.5); RDW Standard Deviation 45.8 fL (36.4-46.3); White Blood Count 7.01 K/uL (4.8-10.8)
[2020-04-29 09:00] LABS: BUN Creatinine Ratio 11.2 (10-20); Calcium 8.3 mg/dl (8.5-10.1); Creatinine Clr Calc Pharmacy 156.5 ml/min; Est GFR (African American) 103.1; Potassium 3.7 mmol/L (3.5-5.1)
--- NOTE | 2020-04-29 09:39 | Discharge Summary ---
Date of Service April 29, 2020 Admission HPI Per Admitting Provider Tylor Walsh is a 39yo C male with history of HTN, HLP and Anxiety presenting with RLE cellulitis. He reports that last evening around 18:00 he acutely developed chills and subjective fever as well as worsening pain in his RLE. He took some Tylenol then came to the ER. He denies cough/SOB/CP/Abdominal pain/diarrhea or constipation. He has some mild nausea On arrival to the ER he was found to have an elevated temperature at 37.9, tachycardic at 114, RR of 22 and saturating 95% on room air. ER labs with leukocytosis, mildly elevated lactate at 2.11 and elevated D-dimer at 530. ER Course: Toradol, Vancomycin Principal Diagnosis Pt feels more back to his usual today. Very slight pink discoloration on his R LE, but mostly resolved. Very slight tinges of pain to the region as well, but minimal. No nausea. Appetite is back. Pt denies fever, SOB, chest pain, abd pain, n/v/c/d, LE swelling. Tolerating PO without issue. Discharge Exam Constitutional WD/WN, vitals as above + morbidly obese Eyes normal visual perez by confrontation and + anicteric sclerae Neck normal visual inspection and trachea midline Respiratory normal respiratory effort, lungs clear to auscultation Cardiovascular Rate/Rhythm: regular rate and regular rhythm Gastrointestinal (Abdomen) Inspection/Auscultation: abdomen not distended Percussion/Palpation: abdomen soft; abdomen nontender Musculoskeletal Head/Neck/Chest: normocephalic and head atraumatic Skin + erythema (moving away from lines, light pink discoloration is essentially resolved) Neurologic awake; not confused Speech / Cognition: normal speech Psychiatric A+Ox3, euthymic affect Discharge Data Allergies Allergy/AdvReac Type Severity Reaction Status Date / Time No Known Allergies Allergy Verified 04/28/20 00:03 Ordered Studies 04/27/20 23:27 US venous doppler LE RT Urgent 04/28/20 01:53 CT angio chest PE protocol Urgent Hospital Course (1) Cellulitis: RLE cellulitis - patient tachycardic, leukocytosis, tachypneic, mildly elevated lactic acid. He is non-toxic in appearance -Observation to medical floor -Daptomycin and Ceftriaxone for empiric antibiotics started on admission, de- escalate to ceftriaxone only on 04/28 and ongoing improvement Last dapto dose 04/28 9:30a -MRSA Nasal swab, denies hx of MRSA abscess/cellulitis Lactic acid elevated on admission DDimer +, R LE US neg for DVT, CTA neg for PE Prior success with clinda and pt would prefer same abx as has used prior d/c on clinda TID x10 days Advised probiotic Blood cx neg on prelim, final pending on d/c. (2) HTN (hypertension), benign: Blood pressure stable at present -Continue Lisinopril 10mg po daily -Continue to monitor (3) Hyperlipidemia: Chronic. Stable -Continue Atorvastatin 20mg po daily (4) Depression: Chronic. Stable -Continue Escitalopram and Buspirone (5) Obesity: Advised pt that morbid obesity will make infections more likely and more difficult to heal in general Fortunately, pt is not a DM pt at this time, but is aware of his risk given his weight and advised him that this would make infections even more prevalent Given handouts for Mediterranean type diet Total Time Total Time Spent Total Time Spent (In Minutes): >30 Total Time Includes: Examination of the Patient, Discharge Planning, Medication Reconciliation and Other Discharge Plan Discharge Items Patient Disposition: Home - Self-Care Reason For Visit: CELLULITIS Discharge Diagnosis: cellulitis Activity: Resume your previous activity Non-emergency contact: Primary Care Provider Call non-emergency contact if: you have any medication questions and your symptoms worsen Follow-up/Referrals: Etienne Turk Jr, DO [Primary Care Provider] - Diet: Heart Healthy Addtl Attending Provider Instructions: You should return to the ED if your symptoms return You should start taking a probiotic. This can help with diarrhea that frequently occurs with antibiotic use. It can also help to repopulate the good bacteria that antibiotics will also kill while taking care of the bad bacteria that is causing your leg infection. The one I recommend for most patients is [employer] EPS 5 billion. It is a mix of 8 different bacteria. You can find this product at [employer] in [place]. You should start with 1 a day. The goal is to have 1 solid bowel movement a day. If you develop or continue to have diarrhea, you should increase to 2 probiotics daily. You can take up to 4 a day, but you want to take the least amount of any type of medication or supplement. You should take a probiotic for the duration of time you are on an antibiotic and then for at least 30 days after you finish. You should take the probiotic about 30 minutes prior to taking your antibiotic dose to allow it to digest somewhat prior to taking the antibiotic. This could be prior to your second dose of the day or just before bed. [employer] is not open on Thursday. You could likely find a suitable other brand when you picking tech your prescription. Make sure it has a mix of different bacteria, the most important being the Lactobacillus and Bifidobacter families. A good probiotic should have several different types of bacteria from both of these families. Pending Studies at Discharge: Yes Studies:: Final blood cultures Stand-Alone Forms: My [facility] [employer], Smoking Cessation Medications and DC Order Prescriptions: New clindamycin HCl 300 mg capsule 300 mg PO Q8H 10 Days Qty: 30 RF: 0 Continued buspirone 10 mg tablet 10 mg PO BID RF: 0 lisinopril 10 mg tablet 10 mg PO QAM RF: 0 escitalopram oxalate 20 mg tablet 20 mg PO QAM RF: 0 atorvastatin 20 mg tablet 20 mg PO QAM RF: 0 Discharge Orders: Discharge Order (Routine); Ordered 04/29/20 Ordered By: Sloane Llanos Admission Data Admit Date/Time: 04/28/20 03:00 Attending Provider: Sloane Llanos Admit Provider: Elizabeth Alvarez Primary Care Provider: tEienne Turk Jr Other Interventions: Discharge Summary Assessment (RN) Last Done: 04/29/20 09:43 DC Date/Time DO NOT enter until pt leaves facility: 04/29/20 11:31 Coding Level of Care Code D/C Day Management >30 mins Diagnoses Cellulitis L03.115 Laterality: right Site of cellulitis: extremity Site of cellulitis of extremity: lower extremity HTN (hypertension), benign I10 Hyperlipidemia E78.5 Hyperlipidemia type: unspecified Depression F32.9 Active/Remission status: remission status unspecified Depression Type: major depressive disorder Major depression recurrence: unspecified whether recurrent Obesity E66.9
== END 2020-04-29 11:31 | disposition home or self-care (01) ==
LOC: 2N 22:14 → ED 22:14 → SUATTDRO 04-28 03:00 → 2N 04-28 03:45

== ENCOUNTER 2021-05-10 23:47 | Observation (INO) ==
[2021-05-11] MEDS ORDERED: ONDANSETRON INJ 2 MG/ML 2 ML VIAL IV STA (00:44)
[2021-05-11] MEDS ORDERED: cefTRIAXone SODIUM 2,000 MG/70 ML BAG IV STA (00:44)
[2021-05-11] MEDS ORDERED: ACETAMINOPHEN 1,000 MG/100 ML VIAL IV STA (00:44)
[2021-05-11] MEDS ORDERED: SODIUM CHLORIDE 0.9% 1000ML 1,000 ML IV SCH (00:45)
[2021-05-11] MEDS ORDERED: VANCOMYCIN CONSULT ACTIVE PRN (01:09)
[2021-05-11] MEDS ORDERED: VANCOMYCIN HCL 2,000 MG in SODIUM CHLORIDE 0.9% 500 ML IV ONE (01:09)
--- NOTE | 2021-05-11 01:09 | Emergency Department Note ---
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 He does have a fever here in the ER. Patient denies chest pain, dyspnea, cough, congestion, vomiting, diar jazmyn. No history of DVT. Home Medications Medication Instructions Recorded Confirmed Type atorvastatin 20 mg PO QAM 06/08/19 05/11/21 History escitalopram oxalate 20 mg PO QAM 06/08/19 05/11/21 History lisinopril 10 mg PO QAM 06/08/19 05/11/21 History buspirone 10 mg tablet 10 mg PO BID 11/30/19 05/11/21 History sulfamethoxazole-trimethoprim 1 tab PO Q12H #19 tab 07/20/20 05/11/21 Rx [Bactrim DS] acetaminophen [Tylenol Extra 1,000 mg PO Q6H PRN 05/11/21 05/11/21 History Strength] ciprofloxacin HCl [Cipro] 250 mg PO BID 4 Days #8 tab 05/11/21 05/11/21 Rx Allergies Allergy/AdvReac Type Severity Reaction Status Date / Time No Known Allergies Allergy Verified 05/11/21 03:06 Past Med/Surg History Medical History (Updated 05/11/21 @ 02:52 by Lizbeth Cline PA-C) Cellulitis Depression High cholesterol Hypertension Surgical History No pertinent past surgical history Family History Other Diabetes Heart disease Social History Smoking Status: Never smoker Hx Alcohol Use: Yes Alcohol type: beer and hard liquor Hx Substance Use: No Preferred Language: Ghanaian Communication Ability: Effective Groundskeeper Supervisor Required: No Beliefs That Will Affect Care: None Current Living Situation: Spouse Feels Safe at Home: Yes Assistive Devices: None Review of Systems A total of 10 systems reviewed and were otherwise negative Physical Exam Vital Signs Vital Signs - 24 hr 05/10/21 23:50 05/11/21 00:45 05/11/21 01:36 Temperature 37.3 C 38.7 C H Temperature Source Temporal Artery Scan Oral Pulse Rate 119 H Respiratory Rate 20 Respiratory Depth Normal Blood Pressure 162/98 H Blood Pressure Mean 119 Pulse Oximetry 97 94 Oxygen Delivery Method Room Air Room Air Sepsis Recent Fever Within 48 Hours Yes Sepsis New/Unexplained Change in Mental Status N/A Sepsis Action Taken by Nursing No Action Required 05/11/21 02:23 Temperature 37.5 C Temperature Source Oral Pulse Rate Respiratory Rate Respiratory Depth Blood Pressure Blood Pressure Mean Pulse Oximetry Oxygen Delivery Method Sepsis Recent Fever Within 48 Hours Sepsis New/Unexplained Change in Mental Status Sepsis Action Taken by Nursing VITALS: Vitals are noted on the nurse's note and reviewed by myself. Vital signs febrile and tachycardic GENERAL: Pleasant male, in no acute distress, nondiaphoretic, well-developed well-nourished. SKIN: Capillary reflex less than 2 seconds. HEENT: Normocephalic. PERRLA. EOMI. Nares patent. Mucous membranes moist. Neck is supple without nuchal rigidity. HEART: Mildly tachycardic rate and rhythm LUNGS: Clear to auscultation bilaterally without wheezes, rales or rhonchi. No retractions or accessory muscle use. ABDOMEN: Positive bowel sounds x 4. Normal tympanic percussion. Soft, nontender, without masses or organomegaly. Mercedes sign negative. No guarding or rebound tenderness. MUSCULOSKELETAL: No gross musculoskeletal defects. Right lower leg erythematous and edematous concerning for infection. NEURO: Patient was alert and oriented to person place and time. Normal sensation to light and sharp touch. No focal neurological deficits. Course Administered Medications Vancomycin HCl 2,000 mg/ (Sodium Chloride) 540 mls @ 200 mls/hr IV NOW ONE Stop: 05/11/21 03:38 Last Admin: 05/11/21 02:24 Dose: 200 mls/hr Documented by: [id number] Miscellaneous Information (Vancomycin Consult Active) 1 ea N/A UD PRN PRN Reason: Consult Stop: 06/10/21 01:08 Last Admin: 05/11/21 02:24 Dose: 1 ea Documented by: [id number] Discontinued Medications Sodium Chloride (Nss 1000ml) 1,000 mls @ 999 mls/hr IV .Q1H1M SUSANNAH Stop: 05/11/21 01:45 Last Infusion: 05/11/21 02:09 Dose: 0 mls/hr Documented by: [id number] Admin: 05/11/21 01:08 Dose: 999 mls/hr Documented by: [id number] Acetaminophen (Ofirmev) 1,000 mg in 100 mls @ 400 mls/hr IV NOW STA Stop: 05/11/21 00:58 Last Infusion: 05/11/21 01:23 Dose: 0 mls/hr Documented by: [id number] Admin: 05/11/21 01:08 Dose: 400 mls/hr Documented by: [id number] Ceftriaxone Sodium (Rocephin) 2,000 mg in 70 mls @ 140 mls/hr IV NOW STA Stop: 05/11/21 01:13 Last Infusion: 05/11/21 01:59 Dose: 0 mls/hr Documented by: [id number] Admin: 05/11/21 01:29 Dose: 140 mls/hr Documented by: [id number] Magnesium Citrate (Magnesium Citrate 296 Ml/Btl) 296 ml PO NOW STA Stop: 05/11/21 02:27 Last Admin: 05/11/21 02:32 Dose: Not Given Documented by: [id number] Ondansetron HCl (Ondansetron Inj 2 Mg/Ml 2 Ml Vial) 4 mg IV NOW STA Stop: 05/11/21 00:45 Last Admin: 05/11/21 01:07 Dose: 4 mg Documented by: [id number] Medical Decision Making Medical Records Attestation: I reviewed the patient's medical records. Home Medications Current Medication List: was personally reviewed by me Laboratory Data Attestation: I reviewed the patient's lab results. Result diagrams: 05/11/21 01:17 05/11/21 01:17 Lab Results 05/11/21 05/11/21 05/11/21 Range/Units 01:17 01:17 01:17 WBC 19.17 H (4.8-10.8) K/uL RBC 4.92 (4.7-6.1) M/uL Hgb 14.5 (14.0-18.0) g/dL Hct 43.3 (42-52) % MCV 88.0 (80-100) fL MCH 29.5 (25-34) pg MCHC 33.5 (32-36) g/dL RDW Std Deviation 46.2 (36.4-46.3) fL RDW Coeff of Ivy 14.2 (11.5-14.5) % Plt Count 230 (130-400) K/uL MPV 9.6 (7.4-10.4) fL Immature Gran % (Auto) 0.3 % Neut % (Auto) 89.0 % Lymph % (Auto) 5.5 % [place] % (Auto) 5.0 % Eos % (Auto) 0.1 % Baso % (Auto) 0.1 % Neut # (Auto) 17.08 H (1.4-6.5) K/uL Lymph # (Auto) 1.06 L (1.2-3.4) K/uL [place] # (Auto) 0.95 H (0.11-0.59) K/uL Eos # (Auto) 0.01 (0-0.5) K/uL Baso # (Auto) 0.02 (0-0.2) K/uL Immature Gran # (Auto) 0.05 H (0.00-0.02) K/uL PT 10.3 (9.0-12.0) Seconds INR 1.0 (0.9-1.1) APTT 25.6 (21.0-31.0) Seconds PTT Ratio 1.0 Sodium 135 L (136-145) mmol/L Potassium 4.0 (3.5-5.1) mmol/L Chloride 101 (98-107) mmol/L Carbon Dioxide 27 (21-32) mmol/L Anion Gap 7.0 (3-11) BUN 13 (7-18) mg/dl Creatinine 1.23 (0.6-1.4) mg/dl Est Cr Clr Drug Dosing 135.5 ml/min Est GFR ( Amer) 84.6 ml/min Est GFR (Non-Af Amer) 73.0 ml/min BUN/Creatinine Ratio 10.2 (10-20) Glucose 103 H (70-99) mg/dl Lactate (0.4-2.0) mmol/L Calcium 8.9 (8.5-10.1) mg/dl Magnesium 1.9 (1.8-2.4) mg/dl Total Bilirubin 0.5 (0.2-1) mg/dl AST 16 (15-37) U/L ALT 42 (12-78) U/L Alkaline Phosphatase 99 (45-117) U/L Total Protein 7.5 (6.4-8.2) gm/dl Albumin 3.9 (3.4-5.0) gm/dl Globulin 3.6 (2.5-4.0) gm/dl Albumin/Globulin Ratio 1.1 (0.9-2) COVID-19 Eval Order 05/11/21 05/11/21 Range/Units 01:17 03:05 WBC (4.8-10.8) K/uL RBC (4.7-6.1) M/uL Hgb (14.0-18.0) g/dL Hct (42-52) % MCV (80-100) fL MCH (25-34) pg MCHC (32-36) g/dL RDW Std Deviation (36.4-46.3) fL RDW Coeff of Ivy (11.5-14.5) % Plt Count (130-400) K/uL MPV (7.4-10.4) fL Immature Gran % (Auto) % Neut % (Auto) % Lymph % (Auto) % [place] % (Auto) % Eos % (Auto) % Baso % (Auto) % Neut # (Auto) (1.4-6.5) K/uL Lymph # (Auto) (1.2-3.4) K/uL [place] # (Auto) (0.11-0.59) K/uL Eos # (Auto) (0-0.5) K/uL Baso # (Auto) (0-0.2) K/uL Immature Gran # (Auto) (0.00-0.02) K/uL PT (9.0-12.0) Seconds INR (0.9-1.1) APTT (21.0-31.0) Seconds PTT Ratio Sodium (136-145) mmol/L Potassium (3.5-5.1) mmol/L Chloride (98-107) mmol/L Carbon Dioxide (21-32) mmol/L Anion Gap (3-11) BUN (7-18) mg/dl Creatinine (0.6-1.4) mg/dl Est Cr Clr Drug Dosing ml/min Est GFR ( Amer) ml/min Est GFR (Non-Af Amer) ml/min BUN/Creatinine Ratio (10-20) Glucose (70-99) mg/dl Lactate 1.6 (0.4-2.0) mmol/L Calcium (8.5-10.1) mg/dl Magnesium (1.8-2.4) mg/dl Total Bilirubin (0.2-1) mg/dl AST (15-37) U/L ALT (12-78) U/L Alkaline Phosphatase (45-117) U/L Total Protein (6.4-8.2) gm/dl Albumin (3.4-5.0) gm/dl Globulin (2.5-4.0) gm/dl Albumin/Globulin Ratio (0.9-2) COVID-19 Eval Order Covid19 at [facility] Imaging Data Attestation: I personally reviewed and interpreted this imaging study as follows: [facility] Narrative Prior records reviewed and summarized as above. Triage Nursing notes reviewed. Additional history obtained from family. The patient's history was concerning for swelling and redness of the skin. Differential diagnosis: Etiologies such as cellulitis, abscess, MRSA infection, DVT, necrotizing fasciitis, dermatitis, drug eruption, as well as others were entertained.. Physical examination: The physical examination was consistent with cellulitis ER treatment provided: Rocephin, vancomycin, Tylenol, Zofran On reassessment the patient felt better. Diagnostics interpreted by me: The labs revealed leukocytosis Imaging studies: US VENOUS RIGHT LOWER EXTREMITY: No evidence of deep venous thrombosis. Radiologist: Mary Lemon M.D Consultation: A consultation was placed with the hospitalist. The case was discussed and diagnostics were reviewed. The patient was evaluated in the ER for further treatment. This appears to be isolated cellulitis. Patient was running a fever and had a moderate white count. He was started on IV antibiotics. Medicine was consulted. He will be evaluated for admission. Ultrasound was negative. By the evaluation outlined above emergent etiologies such as abscess, necrotizing fasciitis, DVT, as well as others were deemed relatively unlikely. The pt informed about the findings as listed above. All questions were answered and pleased with the treatment. The chart was completed utilizing [employer] Speech voice recognition software. Grammatical errors, random word insertions, pronoun errors, and incomplete sentences are an occassional consequence of this system due to software limitations, ambient noise, and hardware issues. Any formal questions or concerns about the content, text, or information contained within the body of this dictation should be directly addressed to the physician assistant store manager operations for clarification. Impression & Plan Cellulitis Discharge Plan Visit Data Chief Complaint: Skin Problem Stated Complaint: CELLULITIS RIGHT LEG ED Provider: Francia Cuenca ED Midlevel Provider: Lizbeth Cline Discharge Problem: Cellulitis Patient Disposition: Admitted As Inpatient Condition: Good Discharge Instructions Activity Restrictions/Additional Instructions: Forms Stand Alone Forms: [facility], [facility] Emergency Department, Important Visit Information Prescriptions Prescriptions: New ciprofloxacin HCl [Cipro] 250 mg tablet 250 mg PO BID 4 Days Qty: 8 RF: 0 No Action buspirone 10 mg tablet 10 mg PO BID RF: 0 lisinopril 10 mg tablet 10 mg PO QAM RF: 0 escitalopram oxalate 20 mg tablet 20 mg PO QAM RF: 0 atorvastatin 20 mg tablet 20 mg PO QAM RF: 0 sulfamethoxazole-trimethoprim [Bactrim DS] 800-160 mg tablet 1 tab PO Q12H Qty: 19 RF: 0 acetaminophen [Tylenol Extra Strength] 500 mg Tablet 1,000 mg PO Q6H PRN (Reason: Pain) RF: 0 Referrals Referrals: Etienne Turk Jr, DO [Primary Care Provider] - Discharge Problem: Cellulitis Qualifiers: Site of cellulitis: extremity Site of cellulitis of extremity: lower extremity Laterality: right Qualified Code(s): L03.115 - Cellulitis of right lower limb
[2021-05-11 01:28] LABS: Basophils # (auto) 0.02 K/uL (0-0.2); Basophils % (auto) 0.1 %; Eosinophils # (auto) 0.01 K/uL (0-0.5); Eosinophils % (auto) 0.1 %; Hematocrit (blood only) 43.3 % (42-52); Hemoglobin 14.5 g/dL (14.0-18.0); Immature Granulocytes # (auto) 0.05 K/uL (0.00-0.02); Immature Granulocytes % (auto) 0.3 %; Lymphocytes # (auto) 1.06 K/uL (1.2-3.4); Lymphocytes % (auto) 5.5 %; Mean Corpuscular Hemoglobin 29.5 pg (25-34); Mean Corpuscular Hgb Conc 33.5 g/dL (32-36); Mean Platelet Volume 9.6 fL (7.4-10.4); Monocytes # (auto) 0.95 K/uL (0.11-0.59); Neutrophils # (auto) 17.08 K/uL (1.4-6.5); Platelet Count 230 K/uL (130-400); RDW Coefficient of Variation 14.2 % (11.5-14.5); RDW Standard Deviation 46.2 fL (36.4-46.3); Red Blood Count 4.92 M/uL (4.7-6.1); White Blood Count 19.17 K/uL (4.8-10.8)
[2021-05-11 01:40] LABS: Partial Thromboplastin Time 25.6 Seconds (21.0-31.0); Prothrombin Time 10.3 Seconds (9.0-12.0)
[2021-05-11 01:45] LABS: Albumin Level 3.9 gm/dl (3.4-5.0); BUN Creatinine Ratio 10.2 (10-20); Calcium 8.9 mg/dl (8.5-10.1); Creatinine Clr Calc Pharmacy 135.5 ml/min; Est GFR (African American) 84.6 ml/min; Magnesium 1.9 mg/dl (1.8-2.4)
[2021-05-11 01:48] LABS: Albumin Globulin Ratio 1.1 (0.9-2); Bilirubin,Total 0.5 mg/dl (0.2-1); Globulin 3.6 gm/dl (2.5-4.0); Total Protein 7.5 gm/dl (6.4-8.2)
[2021-05-11] MEDS ORDERED: MAGNESIUM CITRATE 296 ML/BTL PO STA (02:26)
--- NOTE | 2021-05-11 03:29 | History & Physical Report ---
Date of Service May 11, 2021 Assessment & Plan (1) Cellulitis: Patient is a very pleasant 40 year old male with PMHx HLD, HTN, Depression, that presents with chief complaint of headache, chills, and right lower extremity redness, warmth, and tenderness that started around 7PM the day prior to admission. RLE Cellulitis -Vancomycin and Rocephin in ED -US RLE negative for DVT -Will continue IV Rocephin -Switch to IV Daptomycin for MRSA coverage, though patient's cellulitis appears more strep-like in presentation -Patient did have a positive MRSA nares swab 04/28/2020 -Suspect patient will be able to transitioned to an oral regiment of Omnicef/Augmentin +/- Bactrim fairly quickly -Blood cultures pending -Tylenol PRN fevers -Zofran PRN nausea HLD -Continue Atorvastatin HTN -Continue Lisinopril Depression -Continue BuSpar and Lexapro Dispo: Med/Surg for IV antibiotics, suspect rapid transition to orals as cellulitis improves FEN: HH diet DVT: Low risk, ambulation as tolerated Code: Full (2) HTN (hypertension), benign: (3) Hyperlipidemia: (4) Depression: History of Present Illness Chief Complaint: Pain and redness RLE Primary Care Provider: Etienne Turk Jr, DO Patient is a very pleasant 40 year old male with PMHx HLD, HTN, Depression, that presents with chief complaint of headache, chills, and right lower ex tremity redness, warmth, and tenderness that started around 7PM the day prior to admission. Patient notes that when he started noticing the chills that he had concerns in regards to cellulitis similar to his previous episode. Patient denies any injuries, scratches, punctures, exposures. He works for [employer]. Patient notes that at home after taking off his socks he and his noticed the erythema and warmth and came immediately to the ED for evaluation and treatment. In the ED patient was found to be febrile at 101F received tylenol, IV Rocephin and Vancomycin. He currently notes that the pain of his R lower leg is only about a 2/10 and he was no longer feeling chills. Denied any current chest pain, SOB, abdominal pain, NVD, headache. He did note some anxiety in regards to admission as he and his family were supposed to go to a [employer] game on Thursday for Father's day and he feels not going would disappoint his son. Med Hx: HLD, Depression, HTN Surg: Tonsillectomy Soc Hx: No tobacco or illicit drug use. Has 1 alcoholic beverage monthly at most Allergies Allergy/AdvReac Type Severity Reaction Status Date / Time No Known Allergies Allergy Verified 05/11/21 03:06 Home Medications Medication Instructions Recorded Confirmed Type atorvastatin 20 mg PO QAM 06/08/19 05/11/21 History escitalopram oxalate 20 mg PO QAM 06/08/19 05/11/21 History lisinopril 10 mg PO QAM 06/08/19 05/11/21 History buspirone 10 mg tablet 10 mg PO BID 11/30/19 05/11/21 History sulfamethoxazole-trimethoprim 1 tab PO Q12H #19 tab 07/20/20 05/11/21 Rx [Bactrim DS] acetaminophen [Tylenol Extra 1,000 mg PO Q6H PRN 05/11/21 05/11/21 History Strength] ciprofloxacin HCl [Cipro] 250 mg PO BID 4 Days #8 tab 05/11/21 05/11/21 Rx Past Med/Surg History Medical History (Updated 05/11/21 @ 02:52 by Lizbeth Cline PA-C) Cellulitis Depression High cholesterol Hypertension Surgical History No pertinent past surgical history Family History Other Diabetes Heart disease Social History Smoking Status: Never smoker Do You Dip or Chew Tobacco: No; Hx Alcohol Use: Yes Alcohol type: beer Hx Substance Use: No Preferred Language: Hebrew Communication Ability: Effective Transition Mgr Required: No Beliefs That Will Affect Care: None Current Living Situation: Family Other Information That Helps Us Care for You: No Feels Safe at Home: Yes Safety Concerns: Feels Safe At This Time Assistive Devices: None Review of Systems Review of Systems: All systems reviewed & are unremarkable except as noted in Subjective Physical Exam Constitutional: well developed, well nourished and + morbidly obese Eyes: PERRL, conjunctivae normal, anicteric sclerae ENMT: external ear and nose normal, oropharynx normal Respiratory: normal respiratory effort, lungs clear to auscultation Cardiovascular: RRR, no murmur, no edema Gastrointestinal (Abdomen): normal bowel sounds, soft, nontender, no hepatosplenomegaly Musculoskeletal: no cyanosis or clubbing, extremities motor strength 5/5 Skin: Erythema and warmth without obvious pustules or discharge circumferentially on the distal RLE from below the knee to the ankle, worse on the posterior lateral aspect. Slight TTP of the erythematous regions, worse in the posterior-lateral aspect Neurologic: moves all extremities Psychiatric: Orientation: alert and oriented x 3 Affect: + tearful affect Results & Data Results & Data ([place]) Vital Signs (Past 12 Hours) Vital Signs Temp Pulse Resp BP Pulse Ox 05/11/21 02:23 37.5 C 05/11/21 01:36 94 05/11/21 00:45 38.7 C H 05/10/21 23:50 37.3 C 119 H 20 162/98 H 97 Supervising Physician Co-Signing Physician Notes Attending addendum: I have physically seen this patient, have supervised the medical residents activities, and agree with the H&P unless as otherwise noted. Assessment and Plan: Cellulitis of right lower extremity- Received vancomycin IV and ceftriaxone IV from the ED Lower extremity venous Dopplers negative for DVT Admit on daptomycin IV and ceftriaxone IV Follow blood culture and sensitivities Acetaminophen 650 g p.o. every 6 hours as needed mild pain or fever Zofran 4 mg IV every 6 hours as needed Hyperlipidemia- Continue atorvastatin Hypertension- Continue lisinopril Depression- Continue BuSpar and Lexapro Remaining orders and notations as noted Resident Activity Tracking Resident Involvement: Resident Care Provided Care Provided: Adult Hospital Medicine (1) Cellulitis Laterality: right Site of cellulitis: extremity Site of cellulitis of extremity: lower extremity Qualified Code(s): L03.115 - Cellulitis of right lower limb (2) Depression Active/Remission status: remission status unspecified Depression Type: major depressive disorder Major depression recurrence: unspecified whether recurrent Qualified Code(s): F32.9 - Major depressive disorder, single episode, unspecified (3) Hyperlipidemia Hyperlipidemia type: unspecified Qualified Code(s): E78.5 - Hyperlipidemia, unspecified
[2021-05-11] MEDS ORDERED: ACETAMINOPHEN 325 MG TAB PO PRN (05:52)
[2021-05-11] MEDS ORDERED: ONDANSETRON INJ 2 MG/ML 2 ML VIAL IV PRN (05:52)
[2021-05-11] MEDS ORDERED: ONDANSETRON INJ 2 MG/ML 2 ML VIAL ONE (06:09)
[2021-05-11] MEDS ORDERED: ACETAMINOPHEN 325 MG TAB ONE (06:09)
--- NOTE | 2021-05-11 08:57 | Ultrasound Report ---
US venous doppler LE RT CLINICAL HISTORY: swelling COMPARISON STUDY: April 28, 2020 FINDINGS: Real-time and color flow Doppler imaging were performed. Flow was seen within the femoral, popliteal and calf veins with no intraluminal thrombus demonstrated. The saphenous vein is patent. IMPRESSION: No evidence of deep venous thrombosis. ACT 112: Negative or not required by law. The above report was generated using voice recognition software. It may contain grammatical, syntax o r spelling errors. Electronically signed by: Shelley Brambila DO 05/11/2021 8:55 AM
[2021-05-11] MEDS: DAPTOmycin 500 MG in SYRINGE 0 ML IV SCH (09:07)
[2021-05-11] MEDS: lisinopril 10 MG TAB PO SCH (09:13)
[2021-05-11] MEDS: ATORVASTATIN 20 MG TAB PO SCH (09:13)
[2021-05-11] MEDS: ESCITALOPRAM OXALATE 20 MG TAB PO SCH (09:13)
[2021-05-11] MEDS: busPIRone 5 MG TAB PO SCH ×2 (09:13→21:27)
--- NOTE | 2021-05-11 11:02 | Electrocardiogram Report ---
Test Reason : Blood Pressure : / mmHG Vent. Rate : 113 BPM Atrial Rate : 113 BPM P-R Int : 148 ms QRS Dur : 102 ms QT Int : 328 ms P-R-T Axes : 009 006 023 degrees QTc Int : 449 ms Sinus tachycardia Nonspecific ST abnormality Otherwise normal ECG When compared with ECG of 24-JUN-2020 21:37, No significant change was found Confirmed by Francisco Bustillos ([id number]) on 05/11/2021 11:02:44 AM Referred By: REFERRED SELF Confirmed By:Yovani Bustillos
--- NOTE | 2021-05-11 13:36 | Hospitalist Progress Note ---
Date of Service May 11, 2021 Assessment & Plan (1) Cellulitis: Patient is a very pleasant 40 year old male with PMHx HLD, HTN, Depression, that presents with chief complaint of headache, chills, and right lower extremity redness, warmth, and tenderness that started around 7PM the day prior to admission. RLE Cellulitis -Vancomycin and Rocephin in ED -US RLE negative for DVT -Patient did have a positive MRSA nares swab 04/28/2020 -Blood cultures pending, will likely DC patient when bcx have been negative for 24 hours -Continue IV ceftriaxone and daptomycin, will convert to augmentin/bactrim PO upon discharge -Tylenol PRN fevers -Zofran PRN nausea HLD -Continue Atorvastatin HTN -Continue Lisinopril Depression -Continue BuSpar and Lexapro Dispo: Med/Surg for IV antibiotics, suspect rapid transition to orals as cellulitis improves FEN: HH diet DVT: Low risk, ambulation as tolerated Code: Full Admission and Anticipated Discharge Date Admission Date: May 11, 2021 Supervising Physician Co-Signing Physician Notes Patient seen with PGY 1 Dr. Guzmán. Agree with history, exam findings and assessment and plan as outlined. In brief, Tylor is a 40-year-old male with history of hypertension and hyperlipidemia admitted with right lower extremity cellulitis. Today, he is feeling well. He has some pain in the right lower extremity but it is slightly improved compared to yesterday. Denies any fevers or chills. Denies any nausea. Vital signs and nursing notes reviewed. Nontoxic-appearing. Heart with regular rate and rhythm. No murmur, rub, or gallop. Lungs are clear to auscultation with good air movement in all lung perez. No wheezing, rhonchi or rales. The right lower extremity with trace edema and blanching erythema in the distal two thirds of the right lower leg. The erythema is marked with a surgical marker. The erythema does not expand beyond the surgical marker site. There are no vesicles. No weeping skin lesions. Labs significant for leukocytosis of 19. Lactate on admission is 1.6 Lower extremity Doppler on admission is negative for DVT. 1. Right lower extremity cellulitis. He is status post vancomycin and Rocephin in the emergency department. We will continue the Rocephin. Switch vancomycin to daptomycin for MRSA coverage. Blood cultures pending. Anticipate that he may be able to be discharged with Augmentin and Bactrim tomorrow if he continues to do well and the blood cultures are not growing any bacteria. Other chronic conditions are stable. Home medications continued. Subjective Patient seen and evaluated at bedside this morning. Patient feels well and has no complaints. Headache and chills have resolved. Leg is only mildly tender. Patient feels well otherwise. Patient denies CP, SOB, abdominal pain, nausea, vomiting, lightheadedness, dizziness, back pain, weakness, confusion, dysuria, diarrhea, or other symptoms. Review of Systems Review of Systems: See HPI Physical Exam Physical Exam: Constitutional: well-appearing, no acute distress HEENT: NCAT, no conjunctival injection CV: regular rhythm, no murmur appreciated, extremities well-perfused Resp: CTABL, no wheezes/rales/rhonchi appreciated, no increased work of breathing MSK: no gross deformities appreciated Skin: RLE rash and minimal edema from just above ankle to just below knee, warm to the touch, no exudate, LLE and BL UE without rash Neuro: AOx4, no focal neurological deficits appreciated Results & Data Results & Data ([facility]) Vital Signs (Past 12 Hours) Vital Signs Temp Pulse Pulse Resp BP Pulse Ox 05/11/21 10:29 37.0 C 100 H 18 122/72 95 05/11/21 05:45 37.2 C 100 H 20 128/79 94 05/11/21 04:44 37.2 C 05/11/21 03:55 101 H 18 132/66 96 05/11/21 02:24 103 H 18 111/59 L 94 05/11/21 02:23 37.5 C 05/11/21 01:36 94 Resident Activity Tracking Resident Involvement: Resident Care Provided Care Provided: Adult Hospital Medicine (1) Cellulitis Laterality: right Site of cellulitis: extremity Site of cellulitis of extremity: lower extremity Qualified Code(s): L03.115 - Cellulitis of right lower limb
[2021-05-11] MEDS ORDERED: cefTRIAXone SODIUM 2,000 MG in DEXTROSE 5% 50 ML IV SCH (16:00)
--- NOTE | 2021-05-12 00:38 | Billing Data ---
Date of Service May 12, 2021 Coding Level of Care Code 27401 OBS Care - Level 3
[2021-05-12 05:31] LABS: Basophils # (auto) 0.02 K/uL (0-0.2); Basophils % (auto) 0.2 %; Eosinophils # (auto) 0.08 K/uL (0-0.5); Eosinophils % (auto) 0.9 %; Hematocrit (blood only) 42.1 % (42-52); Hemoglobin 13.7 g/dL (14.0-18.0); Immature Granulocytes # (auto) 0.01 K/uL (0.00-0.02); Immature Granulocytes % (auto) 0.1 %; Lymphocytes # (auto) 1.78 K/uL (1.2-3.4); Lymphocytes % (auto) 20.6 %; Mean Corpuscular Hgb Conc 32.5 g/dL (32-36); Mean Platelet Volume 9.7 fL (7.4-10.4); Monocytes # (auto) 0.69 K/uL (0.11-0.59); Neutrophils # (auto) 6.06 K/uL (1.4-6.5); Neutrophils % (auto) 70.2 %; Platelet Count 201 K/uL (130-400); RDW Coefficient of Variation 14.4 % (11.5-14.5); RDW Standard Deviation 47.4 fL (36.4-46.3); Red Blood Count 4.73 M/uL (4.7-6.1); White Blood Count 8.64 K/uL (4.8-10.8)
[2021-05-12 05:53] LABS: BUN Creatinine Ratio 11.5 (10-20); Calcium 8.1 mg/dl (8.5-10.1); Creatinine Clr Calc Pharmacy 169.5 ml/min; Est GFR (African American) 111.3 ml/min; Est GFR (Non-African American) 96.1 ml/min
[2021-05-12] MEDS: busPIRone 5 MG TAB PO SCH (11:08)
[2021-05-12] MEDS: ATORVASTATIN 20 MG TAB PO SCH (11:08)
[2021-05-12] MEDS: DAPTOmycin 500 MG in SYRINGE 0 ML IV SCH (11:08)
[2021-05-12] MEDS: ESCITALOPRAM OXALATE 20 MG TAB PO SCH (11:09)
[2021-05-12] MEDS: lisinopril 10 MG TAB PO SCH (11:09)
--- NOTE | 2021-05-12 18:42 | Discharge Summary ---
Date of Service May 12, 2021 Admission HPI Per Admitting Provider Patient is a very pleasant 40 year old male with PMHx HLD, HTN, Depression, that presents with chief complaint of headache, chills, and right lower extremity redness, warmth, and tenderness that started around 7PM the day prior to admission. Patient notes that when he started noticing the chills that he had concerns in regards to cellulitis similar to his previous episode. Patient denies any injuries, scratches, punctures, exposures. He works for [employer]. Patient notes that at home after taking off his socks he and his noticed the erythema and warmth and came immediately to the ED for evaluation and cee atment. In the ED patient was found to be febrile at 101F received tylenol, IV Rocephin and Vancomycin. He currently notes that the pain of his R lower leg is only about a 2/10 and he was no longer feeling chills. Denied any current chest pain, SOB, abdominal pain, NVD, headache. He did note some anxiety in regards to admission as he and his family were supposed to go to a [employer] game on Thursday for Father's day and he feels not going would disappoint his son. Med Hx: HLD, Depression, HTN Surg: Tonsillectomy Soc Hx: No tobacco or illicit drug use. Has 1 alcoholic beverage monthly at most Admission Exam Per Admitting Provider Constitutional: well developed, well nourished and + morbidly obese Eyes: PERRL, conjunctivae normal, anicteric sclerae ENMT: external ear and nose normal, oropharynx normal Respiratory: normal respiratory effort, lungs clear to auscultation Cardiovascular: RRR, no murmur, no edema Gastrointestinal (Abdomen): normal bowel sounds, soft, nontender, no hepatosplenomegaly Musculoskeletal: no cyanosis or clubbing, extremities motor strength 5/5 Skin: Erythema and warmth without obvious pustules or discharge circumferentially on the distal RLE from below the knee to the ankle, worse on the posterior lateral aspect. Slight TTP of the erythematous regions, worse in the posterior-lateral aspect Neurologic: moves all extremities Psychiatric: Orientation: alert and oriented x 3 Affect: + tearful affect Principal Diagnosis Cellulitis Discharge Exam Constitutional: well-appearing, no acute distress HEENT: NCAT, no conjunctival injection CV: regular rhythm, no murmur appreciated, extremities well-perfused Resp: CTABL, no wheezes/rales/rhonchi appreciated, no increased work of breathing MSK: no gross deformities appreciated Skin: RLE rash and minimal edema from just above ankle to just below knee, warm to the touch, no exudate, LLE and BL UE without rash Neuro: AOx4, no focal neurological deficits appreciated Constitutional WD/WN, vitals as above Discharge Data Allergies Allergy/AdvReac Type Severity Reaction Status Date / Time No Known Allergies Allergy Verified 05/11/21 03:06 Consultations 05/11/21 02:49 ED Decision to Admit Stat Ordered Studies 05/11/21 00:46 US venous doppler LE RT Urgent Hospital Course (1) Cellulitis: RLE cellulitis Blood cultures were drawn before patient was started on IV antibiotics with MRSA coverage. RLE doppler was performed and was negative for DVT. Patient showed clinical improvement with IV antibiotics, and patient's leukocytosis dramatically fell towards normal on hospital day two. Patient was felt safe for discharge with plan to continue treatment from home with an oral antibiotic regimen, and was discharged on hospital day two. Patient was hemodynamically stable for the entirety of this hospital stay. HLD, HTN, depression Patient's home regimen was continued during this hospitalization. Total Time Total Time Spent Total Time Spent (In Minutes): see attending documentation Discharge Plan Discharge Items Patient Disposition: Home - Self-Care Reason For Visit: CELLULITUS R LEG Discharge Diagnosis: Cellulitis Condition on Discharge: Good Activity: Resume your previous activity Non-emergency contact: Primary Care Provider Call non-emergency contact if: your symptoms worsen Follow-up/Referrals: Etienne Turk Jr, DO [Primary Care Provider] - Diet: Heart Healthy Addtl Attending Provider Instructions: You were admitted to the hospital for cellulitis. You were treated with antibiotics, and your symptoms improved. We feel it is safe for you to continue treating your cellulitis with oral antibiotics while at home. A discharge summary will be sent to your primary care physician to ensure continuity of care. Please bring this discharge summary with you to your next office appointment so that your provider can review it at that time. Follow-up appointments: Make a follow-up appointment with your PCP within the next week. It is very important that you follow up with them shortly after discharge from the hospital. Keep all your follow-up appointments as already scheduled. If you cannot make an appointment, notify your provider. If you feel like you need more time off work, let Dr. Zac Guzmán know - his office phone number is [phone]. Medications: Your medication list has been reviewed and reconciled upon discharge to ensure accuracy and continuity of care. An updated list of all your medications is included with your hospital discharge paperwork. Please review this list closely, and make note of any changes. * We sent a new medication called bactrim to your pharmacy. Take bactrim DS one tablet twice daily for ten days (05/13-05/22). * We sent a new medication called augmentin to your pharmacy. Take augmentin one tablet twice daily for ten days (05/13-05/22). Take your medications as instructed; do not skip a dose of your medicines. Make sure all of your doctors know every medicine you are taking (including [id number] medicines, vitamins, and supplements). Call your primary care provider before taking any new medicines (including [id number] medicines, vitamins, and supplements), because some of these may interact with your current medications, or may make your symptoms worse. Tell your primary care provider if you cannot afford your medications. CONTACT YOUR PRIMARY CARE PROVIDER if you experience any of the following: Worsening rash, pain, or fever Nausea or vomiting Difficulty following your treatment plan, or difficulty taking medications CALL 911 OR GO TO THE EMERGENCY DEPARTMENT if you experience any of the following: Sudden, severe abdominal pain or nausea/vomiting Severe chest pain, or chest pain that radiates (moves) to your jaw or arm Sudden, severe shortness of breath or difficulty breathing Thank you for allowing us to participate in your care. Pending Studies at Discharge: No Visit Report Forms: Smoking Cessation Stand-Alone Forms: [facility] [employer], Opioid Pain Management, Work/School Release, Smoking Cessation Medications and DC Order Prescriptions: New ciprofloxacin HCl [Cipro] 250 mg tablet 250 mg PO BID 4 Days Qty: 8 RF: 0 amoxicillin-pot clavulanate [Augmentin] 875-125 mg tablet 1 tab PO BID Qty: 20 RF: 0 sulfamethoxazole-trimethoprim [Bactrim DS] 800-160 mg tablet 1 tab PO Q12H 10 Days Qty: 20 RF: 0 Continued buspirone 10 mg tablet 10 mg PO BID RF: 0 lisinopril 10 mg tablet 10 mg PO QAM RF: 0 escitalopram oxalate 20 mg tablet 20 mg PO QAM RF: 0 atorvastatin 20 mg tablet 20 mg PO QAM RF: 0 acetaminophen [Tylenol Extra Strength] 500 mg Tablet 1,000 mg PO Q6H PRN (Reason: Pain) RF: 0 Discontinued sulfamethoxazole-trimethoprim [Bactrim DS] 800-160 mg tablet 1 tab PO Q12H Qty: 19 RF: 0 Discharge Orders: Discharge Order (Routine); Ordered 05/12/21 Ordered By: Zac Paulino/Other Patient Handouts: Discharge Instructions for Cellulitis Admission Data Admit Date/Time: 05/11/21 05:45 Attending Provider: Miriam Hopkins Admit Provider: Laureano Orosco Primary Care Provider: Etienne Turk Jr Other Providers: Laureano Orosco Other Interventions: Discharge Summary Assessment (RN) Last Done: 05/12/21 12:00 Supervising Physician Co-Signing Physician Notes Patient seen with PGY 1 Dr. Guzmán. Agree with history, exam findings and assessment and plan as outlined. In brief, Tylor is a 40-year-old male with history of hypertension and hyperlipidemia admitted with right lower extremity cellulitis. Today, he is feeling well. Minimal pain in the leg. No fevers overnight. Vital signs and nursing notes reviewed. Nontoxic-appearing. Heart with regular rate and rhythm. No murmur, rub, or gallop. Lungs are clear to auscultation with good air movement in all lung perez. No wheezing, rhonchi or rales. The right lower extremity with trace edema and blanching erythema in the distal two thirds of the right lower leg. The erythema is marked with a surgical marker. The erythema has extended slightly beyond the marked line. Minimally tender. Erythema is less intense in color compared to yesterday. No vesicles. Labs significant for leukocytosis of 19 that has trended down to 8.6 Lower extremity Doppler on admission is negative for DVT. 1. Right lower extremity cellulitis. He is status post vancomycin and Rocephin in the emergency department. We will continue the Rocephin. Switch vancomycin to daptomycin for MRSA coverage. Blood cultures without growth x 24 hours. Discharge on Augmentin and Bactrim today. Other chronic conditions are stable. Home medications continued. I personally spent 20 minutes discharge planning for this patient. Resident Activity Tracking Resident Involvement: Resident Care Provided Care Provided: Adult Hospital Medicine
== END 2021-05-12 13:11 | disposition home or self-care (01) ==
LOC: ED 23:47 → 3W 23:47 → SUATTDRO 05-11 05:45